=== PATIENT | female | born 1995 | race Caucasian/White ===

== ENCOUNTER 2018-02-15 17:46 | Emergency (ER) | payer SELFPAY ==
[2018-02-15 17:47] VITALS: BP 135/72; PULSE 92; RESP 16; TEMP 36.6; O2SAT 98; BMI 38.5
--- NOTE | 2018-02-15 18:08 | ED.VISSUMM ---
- ER Visit Summary Date of Service: 02/15/18 Chief Complaint: Left lower abdominal cramping History of Present Illness: The patient is a 22 F no senior past medical or surgical history. Ab0. Patient states last 2 months she has had intermittent left lower quadrant abdominal cramping. Associated nausea. No vomiting or diarrhea. Last menstrual period was 2 weeks ago normal. She denies any vaginal bleeding or discharge. She denies any diarrhea or constipation. She denies any dysuria. She denies any fever. She also states that she has had cramping in her left calf and behind her left knee and was concerned because her mom reportedly had prior blood clots. She has never had a DVT or PE. She has had no recent travel, surgery or mobilization. She is not on control pills. Physical Examination: Very well-appearing young female. Vital signs are stable and afebrile. H EENT exam unremarkable. Neck nontender. Lungs clear to auscultation bilaterally. Heart regular rhythm no murmur. Abdomen soft. Nondistended. Normal bowel sounds. No peritoneal signs. She is moving all 4 extremities are neurovascularly intact. Calves are nontender without edema or cords. Neurologically she is awake alert with no focal motor deficits. Test Results: Urinalysis shows unremarkable. Urine negative. Ultrasound of her left lower extremity showed no DVT or other acute abnormality. Emergency Department Course and Treatment: We my suspicion is low of the patient's discomfort in her leg. Her abdominal discomfort on exam is a very benign abdomen. Treatment Plan: Dull pain she can follow-up with her primary care physician and get an outpatient ultrasound as needed. This may possibly be ovarian cyst. Disposition: Discharge Impression: Abdominal pain left lower quadrant of uncertain etiology Left lower calf cramping (No DVT) This note was generated with [employer] dictation software. It may contain incorrect words, spelling, and punctuation that were not noted in review of the chart prior to signing ED Disposition - Plan for ED Patient: Chief Complaint: Abd Pain Referrals: Howard Gomez DO [Primary Care Provider] -
[2018-02-15 18:21] LABS: Bacteria 0 SEEN /hpf (None Seen); Mucous, Urine 0 SEEN /hpf (<or=2+); Red Blood Cells-Urine 0 SEEN /hpf (0-5); White Blood Cells 0 SEEN /hpf (0-5)
[2018-02-15 18:48] LABS: Color, Urine Yellow (Yellow); Glucose, Dipstick Normal (Normal); Ketone-Dipstick Negative (Negative); Leukocyte Esterase-Dipstick Negative /ul (Negative); Nitrite-Dipstick Negative (Negative); Occult Blood-Urine Negative /ul (Negative); Protein-Dipstick 15 mg/dl (Negative); Urine Bilirubin Dipstick Negative (Negative); Urine Clarity Sl. Cloudy (Clear); Urine Urobilinogen Normal (Normal)
--- NOTE | 2018-02-15 19:03 | US_ITS ---
STUDY: VENOUS DOPPLER ULTRASOUND - LEFT LOWER EXTREMITY REASON FOR EXAM: Female, 22 years old. Posterior left-sided calf pain. TECHNIQUE: Ultrasound evaluation of the deep vein system to include william-scale imaging and compression was performed. William-scale imaging and Doppler sonographic evaluation, including duplex spectral analysis and qualitative color flow sonography, was performed. COMPARISON: None. FINDINGS: Common Femoral Vein: Normal compression, spontaneity and augmentation. Normal color Doppler. Common Femoral Vein/Greater Saphenous Junction: Normal compression. Femoral Proximal: Normal compression. Femoral Middle: Normal compression, spontaneity and augmentation. Normal color Doppler. Femoral Distal: Normal compression. Popliteal Vein: Normal compression, spontaneity and augmentation. Normal color Doppler. Posterior Tibial Vein: Normal compression. Peroneal Vein: Normal compression. There is no demonstrated deep venous thrombosis. US/Venous Duplex Imag/Limited/Uni IMPRESSION: No sonographic evidence of deep venous thrombosis of the left common femoral, superficial femoral or popliteal veins. Electronically Signed: Gracie Pretty MD at 19:54 EDT , Service support ,
[2018-02-15 19:11] LABS: Internal QC Validated? YES +Cl - CLEAR BKGD; Pregnancy, Urine Negative Negative
[2018-02-15 19:17] LABS: Squamous Epithelial Cells - UA 5-10 SEEN /hpf (5-10)
--- NOTE | 2018-02-15 19:33 | ED.DEP ---
ED Disposition - Plan for ED Patient: Disposition: Home or Assisted Living Chief Complaint: Abd Pain Instructions: ED Abdominal Pain Unkn Cause Referrals: Howard Gomez DO [Primary Care Provider] - 1 Week Additional Instructions: Call follow-up with your doctor you may need outpatient ultrasound to be evaluated for a possible left ovarian cyst. All your tests tonight were negative. Urine was not infected. You are not . The ultrasound of your leg was negative.
[2018-02-15 19:38] VITALS: BP 122/68; PULSE 87; RESP 18; O2SAT 99
== END 2018-02-15 19:38 | disposition home or self-care (01) ==
PROVIDERS: Emergency Provider Emergency Medicine; Family Provider Preventive Medicine Occupational Medicine; PCP Preventive Medicine Occupational Medicine
DX: R10.32 Left lower quadrant pain (principal); M79.662 Pain in left lower leg
CPT/HCPCS: 81001; 81025; 93971; 99282

== ENCOUNTER → 2019-08-02 15:05 | Outpatient (CLI) | payer MEDICAID, SELFPAY ==
[2019-08-02 14:43] VITALS: BMI 38.5
[2019-08-02 15:21] LABS: Absolute Lymphocyte Count 1.92 X10^3/uL (0.83-4.51); Absolute Neutrophil Count 4.4 X10^3/uL (2.0-7.7); Basophil# 0.02 X10^3/uL; Basophil% 0.3 % (0-1); Eosinophil# 0.11 X10^3/uL; Eosinophils% 1.6 % (0-5); Hematocrit 34.8 % (37-47); Hemoglobin 11.9 g/dL (12.0-15.0); Lymphocyte # 1.92 X10^3/ul (4.0); Lymphocyte % 27.4 % (19-41); Mean Corp Hgb Conc 34.2 g/dL (32-36); Mean Corpuscular Hgb 28.1 pg (27.0-32.0); Mean Corpuscular Volume 82.3 fL (81-99); Mean Platelet Vol. 9.9 fl (6.2-12.0); Monocyte# 0.55 X10^3/uL; Monocyte% 7.9 % (0-10); NRBC Flagged by Analyzer 0 % (0-5); Neutrophil # 4.39 X10^3/uL (2.7-7.7); Neutrophil % 62.7 % (47-70); Platelet Count 184 K/mm3 (150-450); RBC Distribution Width SD 35.4 fl (35.1-43.9); Red Blood Count 4.23 M/mm3 (4.2-5.4)
[2019-08-02 15:32] LABS: Glucose Challenge Gest 1H 50g 98 mg/dL (70-140)
[2019-08-02 16:37] LABS: HIV - WCH Non-Reactive (Nonreactive); Hepatitis B Surface Antigen Non-Reactive (Nonreactive); Hepatitis C Antibody Non-Reactive (Nonreactive); Rubella IgG 129.5 IU/mL
[2019-08-02 17:03] LABS: Amphetamine Urine VISTA NEGATIVE (<1000 ng/mL); Barbiturate Urine VISTA NEGATIVE (< 200 ng/mL); Benzodiazepine Urine VISTA NEGATIVE (< 200 ng/mL); Cocaine Urine VISTA NEGATIVE (< 300 ng/mL); Ecstacy Urine VISTA NEGATIVE (< 500 ng/mL); Methadone Urine VISTA NEGATIVE (< 300 ng/mL); PCP Urine VISTA NEGATIVE (< 25 ng/mL); THC Urine VISTA NEGATIVE (< 50 ng/mL); Vista UDS pH Range 7
[2019-08-02 18:19] LABS: Chlamydia Trachomatis by PCR Negative (Negative); Neisserai gonorrhoeae by PCR Negative (Negative); Probe Check PASS; Sample Adequacy Control PASS; Specimen Processing Control PASS
[2019-08-03 02:25] LABS: Rapid Plasmin Reagin (RPR) NONREACTIVE (NONREACTIVE)
[2019-08-04 14:51] LABS: HPV Reflexed? NOT INDICATED
== END ==
PROVIDERS: PCP Preventive Medicine Occupational Medicine; Referring Provider Obstetrics & Gynecology; Visit Provider Obstetrics & Gynecology
DX: O99.210 Obesity complicating pregnancy, unspecified trimester (principal); E66.9 Obesity, unspecified; Z12.4 Encounter for screening for malignant neoplasm of cervix; Z3A.00 Weeks of gestation of pregnancy not specified
CPT/HCPCS: 36415; 80307; 82950; 85025; 86592; 86703; 86762; 86803; 86850; 86900; 86901; 87086; 87340; 87491; 87591; 88175; G0145

== ENCOUNTER → 2019-09-01 11:46 | Outpatient (CLI) | payer MEDICAID, SELFPAY ==
[2019-09-01 11:41] VITALS: BMI 44.1
[2019-09-01 20:57] LABS: NATERA MAILED SPECIMEN
== END ==
PROVIDERS: PCP Preventive Medicine Occupational Medicine; Referring Provider Nurse Practitioner Women's Health; Visit Provider Nurse Practitioner Women's Health
DX: Z34.81 Encounter for supervision of other normal pregnancy, first trimester (principal); Z31.430 Encounter of female for testing for genetic disease carrier status for procreative management
CPT/HCPCS: 36415

== ENCOUNTER → 2019-11-24 14:37 | Outpatient (CLI) | payer MEDICAID, SELFPAY ==
[2019-11-24 14:10] VITALS: BMI 44.1
[2019-11-24 15:03] LABS: Absolute Neutrophil Count 6.8 X10^3/uL (2.0-7.7); Basophil# 0.02 X10^3/uL; Basophil% 0.2 % (0-1); Hematocrit 31.2 % (37-47); Hemoglobin 10.3 g/dL (12.0-15.0); Lymphocyte % 22.8 % (19-41); Mean Corpuscular Hgb 28.1 pg (27.0-32.0); Mean Platelet Vol. 10.7 fl (6.2-12.0); Monocyte# 0.55 X10^3/uL; Monocyte% 5.7 % (0-10); NRBC Flagged by Analyzer 0 % (0-5); Neutrophil # 6.75 X10^3/uL (2.7-7.7); Neutrophil % 69.9 % (47-70); Platelet Count 186 K/mm3 (150-450); RBC Distribution Width SD 39.7 fl (35.1-43.9); Red Blood Count 3.67 M/mm3 (4.2-5.4); White Blood Count 9.7 K/mm3 (4.4-11.0)
[2019-11-24 15:44] LABS: Glucose Challenge Gest 1H 50g 88 mg/dL (70-140)
== END ==
PROVIDERS: PCP Preventive Medicine Occupational Medicine; Referring Provider Obstetrics & Gynecology; Visit Provider Obstetrics & Gynecology
DX: O09.90 Supervision of high risk pregnancy, unspecified, unspecified trimester (principal); Z3A.00 Weeks of gestation of pregnancy not specified
CPT/HCPCS: 36415; 82950; 85025

== ENCOUNTER 2019-12-08 13:45 | Outpatient (CLI) | payer MEDICAID, SELFPAY ==
[2019-12-07 10:03] VITALS: BMI 44.1
[2019-12-08 13:55] VITALS: TEMP 36.2; O2SAT 98
[2019-12-08 14:02] VITALS: BP 119/70; PULSE 110
[2019-12-08 14:17] VITALS: BMI 48.6
[2019-12-08 14:28] LABS: Color, Urine Yellow (Yellow); Glucose, Dipstick Normal (Normal); Ketone-Dipstick 5 mg/dl (Negative); Leukocyte Esterase-Dipstick Negative /ul (Negative); Nitrite-Dipstick Negative (Negative); Occult Blood-Urine Negative /ul (Negative); Protein-Dipstick Negative (Negative); Urine Bilirubin Dipstick Negative (Negative); Urine Clarity Sl. Cloudy (Clear); Urine Urobilinogen Normal (Normal)
--- NOTE | 2019-12-12 03:26 | OB.TRI.PN_ITS ---
Progress Notes Date of Service: 12/08/19 Progress Note: seen secondary to dec fm. good fm upon presentation and reassuring fht. early GA. reassurance given dc home movement precautions Laboratory Studies: Laboratory Tests 12/08/19 Range/Units 14:00 Urine Color Yellow (Yellow) Urine Clarity Sl. Cloudy (Clear) Urine pH 7.0 (5.0 - 8.0) Ur Specific [place] 1.010 (1.002-1.030) Urine Protein Negative (Negative) mg/dl Urine Glucose (UA) Normal (Normal) mg/dl Urine Ketones 5 H (Negative) mg/dl Urine Occult Blood Negative (Negative) /ul Urine Nitrite Negative (Negative) Urine Bilirubin Negative (Negative) mg/dL Urine Urobilinogen Normal (Normal) mg/dl Ur Leukocyte Esterase Negative (Negative) /ul - Problem List (1) Abnormal ultrasound Status: Acute Comment: initial dilated loop of bowel, resolved by 11/19 but prominent gall bladder seen, recommend abdominal us after delivery, report sent to [facility] for approval of delivery at [facility], approved per [facility] (2) Supervision of high risk , antepartum Status: Acute Comment: PRR BASILIO: 02/25/20 sadia Philip BF: Art (3) Decreased movement Status: Acute
== END 2019-12-08 14:25 | disposition home or self-care (01) ==
LOC: WPOUT 13:49 → OBT 13:53
PROVIDERS: PCP Preventive Medicine Occupational Medicine; Referring Provider Obstetrics & Gynecology; Visit Provider Obstetrics & Gynecology
DX: O36.8190 Decreased fetal movements, unspecified trimester, not applicable or unspecified (principal); O09.90 Supervision of high risk pregnancy, unspecified, unspecified trimester; O28.3 Abnormal ultrasonic finding on antenatal screening of mother; Z3A.00 Weeks of gestation of pregnancy not specified
CPT/HCPCS: 59025; 59050; 81002; 99218; G0378

== ENCOUNTER → 2019-12-22 11:14 | Outpatient (CLI) | payer MEDICAID, SELFPAY ==
[2019-12-22 11:12] VITALS: BMI 48.6
[2019-12-22 11:50] LABS: Absolute Lymphocyte Count 1.91 X10^3/uL (0.83-4.51); Absolute Neutrophil Count 6.6 X10^3/uL (2.0-7.7); Basophil# 0.01 X10^3/uL; Basophil% 0.1 % (0-1); Eosinophil# 0.08 X10^3/uL; Eosinophils% 0.9 % (0-5); Hemoglobin 11.4 g/dL (12.0-15.0); Lymphocyte # 1.91 X10^3/ul (4.0); Mean Corp Hgb Conc 32.6 g/dL (32-36); Mean Corpuscular Hgb 27.7 pg (27.0-32.0); Mean Corpuscular Volume 85.2 fL (81-99); Mean Platelet Vol. 10.7 fl (6.2-12.0); Monocyte# 0.49 X10^3/uL; Monocyte% 5.4 % (0-10); NRBC Flagged by Analyzer 0 % (0-5); Neutrophil # 6.57 X10^3/uL (2.7-7.7); Neutrophil % 72.2 % (47-70); Platelet Count 193 K/mm3 (150-450); RBC Distribution Width CV 13.2 % (11.6-14.6); RBC Distribution Width SD 40.4 fl (35.1-43.9); Red Blood Count 4.11 M/mm3 (4.2-5.4); White Blood Count 9.1 K/mm3 (4.4-11.0)
== END ==
PROVIDERS: PCP Preventive Medicine Occupational Medicine; Referring Provider Obstetrics & Gynecology; Visit Provider Obstetrics & Gynecology
DX: O99.019 Anemia complicating pregnancy, unspecified trimester (principal); D64.9 Anemia, unspecified; Z3A.00 Weeks of gestation of pregnancy not specified
CPT/HCPCS: 36415; 85025

== ENCOUNTER → 2020-01-05 11:25 | Outpatient (CLI) | payer MEDICAID, SELFPAY ==
[2019-11-24 14:10] VITALS: BMI 44.1
[2019-12-22 11:12] VITALS: BMI 48.6
--- NOTE | 2020-01-05 11:25 | US_ITS ---
STUDY: SECOND AND THIRD TRIMESTER OBSTETRICAL ULTRASOUND - LIMITED REASON FOR EXAM: Female, 24 years old GROWTH LMP: 05/21/2019 PRIOR ULTRASOUND: None. TECHNIQUE: Transabdominal TECHNICAL QUALITY: Adequate. FINDINGS: There is a single intrauterine fetus. The fetus is in a cephalic presentation. There is demonstrated cardiac activity with a heart rate of 158 bpm. There is a normal amniotic fluid volume. The largest amniotic fluid pocket measures 5.91 cm. The amniotic fluid index (RAFAEL) is 3.79 cm. The placenta is fundal in location. There are Grade 0 placental changes. The cervix measures 3.7 cm cm in length and is closed. The adnexa are not visualized. BIOMETRY: BPD: 8.71 cm: 35 weeks, 2 days HC: 31.46 cm: 35 weeks, 3 days AC: 29.77 cm: 33 weeks, 6 days FL: 6.48 cm: 33 weeks, 4 days CI: 82% FL/BPD: 74% FL/AC: 22% HC/AC: 1.06 Age by LMP: 32 weeks, 5 days. BASILIO by LMP: 02/25/2020. age by current US: 34 weeks, 4 days. BASILIO by LMP: 02/12/2020. . Estimated weight: 2313 grams, +/- 338 grams, 79 percentile. US/OB Limited With Biometrics IMPRESSION: 1. Single living intrauterine fetus in cephalic presentation estimated gestational age of 34 weeks, 4 days. Estimated date of delivery by today''s study is 02/12/2020. 2. Estimated weight is 2313 g. 3. Grade 0 fundal placenta is not low lying. 4. Normal amniotic fluid volume with an index of 0.79 cm. 5. The cervix is closed. Cervical length is 3.7 cm. Electronically Signed: Noam Norris MD at 15:58 EDT , Service support ,
== END ==
PROVIDERS: PCP Preventive Medicine Occupational Medicine; Referring Provider Obstetrics & Gynecology; Visit Provider Obstetrics & Gynecology
DX: O99.213 Obesity complicating pregnancy, third trimester (principal); Z3A.34 34 weeks gestation of pregnancy
CPT/HCPCS: 76816

== ENCOUNTER → 2020-02-02 11:30 | Outpatient (CLI) | payer MEDICAID, SELFPAY ==
[2019-11-24 14:10] VITALS: BMI 44.1
[2020-01-26 13:32] VITALS: BMI 48.6
--- NOTE | 2020-02-02 11:32 | US_ITS ---
STUDY: SECOND AND THIRD TRIMESTER OBSTETRICAL ULTRASOUND REASON FOR EXAM: Female, 24 years old growth LMP: 05/21/2019. TECHNIQUE: Transabdominal and Transvaginal TECHNICAL QUALITY: Adequate. PRIOR ULTRASOUND: Comparison is made with prior study dated 01/05/2020. FINDINGS: There is a single intrauterine fetus. The fetus is in a cephalic presentation. There is demonstrated cardiac activity with a heart rate of 152 bpm. There is a normal amniotic fluid volume. The largest amniotic fluid pocket measures 4.8 cm. The amniotic fluid index (RAFAEL) is 12.8 cm. The placenta is fundal and posterior in location. There are Grade 1 placental changes. The cervix measures 3.8 cm in length. The adnexal regions are not visualized. BIOMETRY: BPD: 9.3 cm: 37 weeks, 4 days HC: 34.8 cm: 40 weeks, 3 days AC: 35.8 cm: 39 weeks, 4 days FL: 7.1 cm: 36 weeks, 2 days CI: 77% FL/BPD: 77% FL/HC: FL/AC: 19.8% HC/AC: 0.97 age by current US: 38 weeks, 3 days. BASILIO by current US: 02/13/2020. Estimated weight: 3562 grams, +/- 534 grams, 70.7 %. age by prior US: 38 weeks, 4 days. BASILIO by prior US: 02/12/2020. Age by LMP: 36 weeks, 5 days. BASILIO by LMP: 02/25/2020. US/OB Limited With Biometrics IMPRESSION: Single live uterine gestation with a mean gestational age of 38 weeks and 4 days. The measurements obtained today following within normal expected range. Electronically Signed: Kal Moctezuma, at 12:34 EDT , Service support ,
== END ==
PROVIDERS: PCP Preventive Medicine Occupational Medicine; Referring Provider Obstetrics & Gynecology; Visit Provider Obstetrics & Gynecology
DX: O09.93 Supervision of high risk pregnancy, unspecified, third trimester (principal); Z3A.38 38 weeks gestation of pregnancy
CPT/HCPCS: 76816; 87077; 87081; 87186; 93976

== ENCOUNTER → 2020-02-23 09:10 | Outpatient (CLI) | payer MEDICAID, SELFPAY ==
[2020-02-09 13:10] VITALS: BMI 51.7
== END ==
PROVIDERS: PCP Preventive Medicine Occupational Medicine; Referring Provider Obstetrics & Gynecology; Visit Provider Obstetrics & Gynecology
DX: Z20.828 Contact with and (suspected) exposure to other viral communicable diseases (principal)
CPT/HCPCS: 87635; C9803; U0003

== ENCOUNTER → 2020-03-01 11:04 | Outpatient (CLI) | payer MEDICAID, SELFPAY ==
[2020-02-23 13:41] VITALS: BMI 51.7
[2020-03-01 09:33] VITALS: BMI 52.5
--- NOTE | 2020-03-01 12:40 | US_ITS ---
STUDY: SECOND AND THIRD TRIMESTER OBSTETRICAL ULTRASOUND - LIMITED REASON FOR EXAM: Female, 24 years old. . Post dates. LMP: 05/21/19 PRIOR ULTRASOUND: None. TECHNIQUE: Transabdominal ultrasound evaluation was performed. FINDINGS: There is a single intrauterine fetus. The fetus is in a cephalic presentation. There is demonstrated cardiac activity with a heart rate of 141 bpm. There is a normal amniotic fluid volume. The largest amniotic fluid pocket measures 6.1 cm. The amniotic fluid index (RAFAEL) is 16.6 cm. The placenta is fundal. BIOMETRY: BPD: 9.82 cm: 40 weeks, 1 days HC: 36.46 cm: Out of range. AC: 38.1: Out of range. FL: 7.81: 39 weeks, 6 days Age by LMP: 40 weeks, 5 days. BASILIO by LMP: 02/25/20. age by current US: Out of range Estimated weight: 4391 grams, +/- 659 grams, 94.6 percentile. US/OB Limited With Biometrics IMPRESSION: Single live intrauterine gestation, as described above. Electronically Signed: Sorin Delgado, at 14:06 EDT Tel , Service support ,
== END ==
PROVIDERS: PCP Preventive Medicine Occupational Medicine; Referring Provider Obstetrics & Gynecology; Visit Provider Obstetrics & Gynecology
DX: O48.0 Post-term pregnancy (principal); Z3A.00 Weeks of gestation of pregnancy not specified
CPT/HCPCS: 36415; 76816; 80053; 82570; 84156; 85025

== ENCOUNTER → 2020-03-01 | Outpatient (CLI) | payer MEDICAID, SELFPAY ==
[2020-03-01 09:33] VITALS: BMI 52.5
[2020-03-01 10:31] LABS: Protein, Urine (Random) 58.4 mg/dL (<11.9); Protein:Creat Ratio 330 mg/g CRE (0-200)
[2020-03-01 11:15] LABS: Absolute Lymphocyte Count 1.67 X10^3/uL (0.83-4.51); Absolute Neutrophil Count 5.6 X10^3/uL (2.0-7.7); Basophil# 0.02 X10^3/uL; Basophil% 0.3 % (0-1); Eosinophil# 0.06 X10^3/uL; Eosinophils% 0.8 % (0-5); Hematocrit 34.9 % (37-47); Hemoglobin 11.4 g/dL (12.0-15.0); Lymphocyte # 1.67 X10^3/ul (4.0); Lymphocyte % 21.1 % (19-41); Mean Corp Hgb Conc 32.7 g/dL (32-36); Mean Corpuscular Hgb 27.9 pg (27.0-32.0); Mean Corpuscular Volume 85.5 fL (81-99); Mean Platelet Vol. 11.8 fl (6.2-12.0); Monocyte# 0.59 X10^3/uL; Monocyte% 7.5 % (0-10); NRBC Flagged by Analyzer 0 % (0-5); Neutrophil # 5.55 X10^3/uL (2.7-7.7); Platelet Count 151 K/mm3 (150-450); RBC Distribution Width CV 13.4 % (11.6-14.6); RBC Distribution Width SD 41.4 fl (35.1-43.9); Red Blood Count 4.08 M/mm3 (4.2-5.4); White Blood Count 7.9 K/mm3 (4.4-11.0)
[2020-03-01 11:47] LABS: ALB/GLOB Ratio 0.6 RATIO (0.9-2.4); AST(SGOT) 12 U/L (15-37); Alanine Aminotransfer ALT/SGPT 16 U/L (13-56); Albumin, Serum 2.5 g/dL (3.2-5.0); Alkaline Phosphatase 104 U/L (45-117); Anion Gap 7 (5-15); BUN 12 mg/dL (7-18); BUN/Creat Ratio 18.2 RATIO (10-20); Calcium,Total 8.7 mg/dL (8.5-10.1); Chloride 109 mmol/L (98-107); Creatinine, Serum 0.66 mg/dL (0.55-1.02); EST Glomerular Filtration Rate 119 mL/min (>60); Est Glom Filt Rate - Afr Amer 144 mL/min (>60); Globulin 4.5 g/dL (2.2-4.2); Glucose 106 mg/dL (74-106); Potassium 3.8 mmol/L (3.5-5.1); Sodium Level 138 mmol/L (136-145)
== END | disposition home or self-care (01) ==
LOC: LABSPEC 09:57
PROVIDERS: PCP Preventive Medicine Occupational Medicine; Referring Provider Obstetrics & Gynecology; Visit Provider Obstetrics & Gynecology
DX: O12.10 Gestational proteinuria, unspecified trimester (principal); Z3A.00 Weeks of gestation of pregnancy not specified
CPT/HCPCS: 36415; 80053; 82570; 84156; 85025

== ENCOUNTER 2020-03-02 18:30 | Inpatient (IN) | payer MEDICAID, SELFPAY ==
[2019-08-02 14:43] VITALS: BMI 38.5
[2020-03-01 09:33] VITALS: BMI 52.5
--- NOTE | 2020-03-02 17:58 | PCM.HPOB.BLA ---
- Problem List (1) Post-dates Status: Acute (2) 38 weeks gestation of Status: Acute Comment: COVID TESTING ORDERED 02/14/2020sc (3) Abnormal ultrasound Status: Acute Comment: initial dilated loop of bowel, resolved by 11/19 but prominent gall bladder seen, recommend abdominal us after delivery, report sent to [facility] for approval of delivery at [facility], approved per MFM (4) GBS (group B Streptococcus carrier), +RV culture, currently Status: Acute Comment: plan PCN in labor (5) Influenza vaccine administered Status: Acute Comment: 01/19/2020sc (6) Obesity affecting Status: Acute Qualifiers: Comment: BMI 43- Glucola nl at [facility], encouraged healthy weight gain. weekly nsts and q 4 wk growth US after 32 weeks. NL growth 70% 02/01 (7) Status: Acute Qualifiers: Comment: Carrier screening negative. Low risk genetic and declined NTD, anatomy us reveiwed. 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 Adore Steel MD) Smoking Status: Never smoker alcohol intake: never substance use type: does not use caffeine: No what type of physical activity do you participate in: none seatbelt use: always do you feel safe at home: Yes additional social history: [employer] at [employer] Patient works at [employer] Pregancy History 1 Elective abortions Hx Para Spontaneous abortions Hx # Term Pregnancies Ectopic pregnancies Hx # Pregnancies Multiple births # of living children HPI est ob: Details: ROSALIND JACKSON is a 24 year old who presents with premature rupture of membranes cervix and half a centimeter dilated with no regular contractions. OB Visit BASILIO Calculator Estimated Delivery Date Method Current WG Current Estimate 02/25/20 LMP (Certain) 40w 5d Other Estimates 02/26/20 Ultrasound #1 40w 4d Expected Delivery Route/Plan Labor Preferences- CB/BF classes: desires labor support person: Art labor intervention preferences: ok with standard interventions pain management options preferred: epidural cut cord/dad catch: cord, maybe delivery : [] PP control planned: [] discussed possible routes of delivery and associated risks: discussed possible delivery modalities and possible indications for each including R/B/A of , VAVD, and CS. questions answered. special requests: none. Specific Issue/Plans flu vaccine: declined tdap vaccine: 11/23 rhogam: na LARC form signed: yes Problem list reviewed and updated with the most current plan of care details and appropriate orders placed. Relevant counseling for the gestational age provided. Continue routine care and follow up unless otherwise noted in visit notes/problem list details Initial Weight: 251 lb Date EGA Weight BP Urine Prot Glucose FHR FuHt Pres Dilation Effaced St Visit Note 09/01/19 14w 5d 257 lb (+6 lb) 124/68 Negative Negative 164 MH-NO VB, LOF. Nausea has resolved. NIPT and carrier today. Reviewed PNL 09/20/19 17w 3d 262 lb (+11 lb) 116/72 Negative Negative 142 NO VB, LOF. work in for low pelvic cramping. Reassured. Anatomy US 10/1110/24/19 22w 2d 273 lb (+22 lb) 112/66 Trace Negative 145 23 SM- no vb lof good fm no regular cts 11/24/19 26w 5d 283 lb 6 oz (+32 lb 6 oz) 124/60 Negative Negative 145 27 SM- no vb lof good fm no regular ctx cbc gct tdap today. discussed fu mfm ultrasound 12/07/19 28w 4d 283 lb 6 oz (+32 lb 6 oz) 124/68 Negative Negative 155 29 MH-No vb, lof. Good FM. Growth US 32 wk ordered 12/22/19 30w 5d 285 lb 6 oz (+34 lb 6 oz) 128/70 Negative Negative 140 31 SM- no vb lof good fm no regular ctx cbc today 01/05/20 32w 5d 291 lb 6 oz (+40 lb 6 oz) 130/64 SM- no vb lof good fm no regular ctx 01/19/20 34w 5d 290 lb (+39 lb) 130/82 Negative Negative 140 35 Sm- no vb lof good fm no regular ctx 02/02/20 36w 5d 295 lb (+44 lb) 130/78 Negative Negative 140 36 GP - no LOF, VB, DFM, ctx. Denies complaints. 02/09/20 37w 5d 301 lb 6 oz (+50 lb 6 oz) 136/74 Negative Negative 140 37 Cephalic 0 GP - no LOF, VB, DFM, regular ctx. Labor precautions reviewed. 02/16/20 38w 5d 303 lb 4 oz (+52 lb 4 oz) 130/86 Negative Negative 140 39 Cephalic 0 Sm- no vb lof good fm no regular ctx 02/23/20 39w 5d 306 lb (+55 lb) 130/80 130 40 Cephalic Sm- no vb lof good fm no regular ctx 03/01/20 40w 5d 306 lb (+55 lb) 135/84 1+ Negative 130 41 Cephalic 0 Sm- no vb lof good fm nro egualr ctx ordered growth us. unable to see routine NOB results in previous records, will obtain Sm- no vb lof good fm nro egualr ctx scheduled IOL wednesday Diagnostics Diagnostics Details: HIV: Urine Culture: Sequential Screen: NIPT Screen: ROS Const Reports system reviewed and no additional complaints, except as docu Card Reports system reviewed and no additional complaints, except as docu Resp Reports system reviewed and no additional complaints, except as docu GI Reports system reviewed and no additional complaints, except as docu, Reports nausea Reports system reviewed and no additional complaints, except as docu Musc Reports system reviewed and no additional complaints, except as docu Exam Const General: cooperative, healthy appearing, comfortable, anxious [facility] Head: normal to inspection Nose: external nose normal Face and sinus: normal facial exam Neck Neck: normal visual inspection, full ROM, no lymphadenopathy Thyroid: thyroid normal Chest Chest palpation & inspection: normal inspection of the chest Resp Effort & Inspection: normal respiratory effort GI Inspection: normal to inspection Palpation: soft, other (gravid uterus) Other: infant vertex and appropriate size for gestational age Other: Cervical Exam: Extrem General: pedal edema Results POC Urinalysis 2 Dip (Clinic) Office Urine Glucose Negative Last Edit by Toña Stack on 03/01/20 09:39 Office Urine Protein 1+ Last Edit by Toña Stack on 03/01/20 09:39 Assessment & Plan Problems 1. Obesity affecting O99.210 BMI 43- Glucola nl at [facility], encouraged healthy weight gain. weekly nsts and q 4 wk growth US after 32 weeks. NL growth 70% 02/01 2. Supervision of high risk , antepartum O09.90 PRR BASILIO: 02/25/20 sadia Philip BF: Art 3. Z34.90 Carrier screening negative. Low risk genetic and declined NTD, anatomy us reveiwed. 4. Abnormal ultrasound O28.3 initial dilated loop of bowel, resolved by 11/19 but prominent gall bladder seen, recommend abdominal us after delivery, report sent to [facility] for approval of delivery at [facility], approved per MFM 5. Influenza vaccine administered Z23 01/19/2020sc 6. GBS (group B Streptococcus carrier), +RV culture, currently O99.820 plan PCN in labor 7. 38 weeks gestation of Z3A.38 COVID TESTING ORDERED 02/14/2020sc Plan Patient presents IOL due to PROM, plan management for with Pitocin Pain management: plans epidural. GBS positive- PCN. Management of any complications: morbid obesity I have reviewed the [facility] and made any clinically relevant updates. Orders Orders: POC Urinalysis 2 Dip (Clinic) Today Protein+Creatinine Ratio,Urine Today O12.10 Coding Level of Care Code Off vis,est,level 4 Diagnoses Obesity affecting O99.210 Supervision of high risk , antepartum O09.90 Z34.90 Abnormal ultrasound O28.3 Influenza vaccine administered Z23 GBS (group B Streptococcus carrier), +RV culture, currently O99.820 38 weeks gestation of Z3A.38
[2020-03-02 19:02] VITALS: BMI 52.6
[2020-03-02 19:13] VITALS: BP 129/85; PULSE 93
[2020-03-02] MEDS: Lactated Ringers 1,000 ML 200 ML IV (19:35)
[2020-03-02 19:54] LABS: Absolute Lymphocyte Count 1.83 X10^3/uL (0.83-4.51); Absolute Neutrophil Count 6.2 X10^3/uL (2.0-7.7); Basophil# 0.02 X10^3/uL; Basophil% 0.2 % (0-1); Eosinophil# 0.06 X10^3/uL; Eosinophils% 0.7 % (0-5); Hematocrit 33.7 % (37-47); Hemoglobin 11.2 g/dL (12.0-15.0); Lymphocyte # 1.83 X10^3/ul (4.0); Lymphocyte % 21.1 % (19-41); Mean Corp Hgb Conc 33.2 g/dL (32-36); Mean Corpuscular Hgb 28.4 pg (27.0-32.0); Mean Corpuscular Volume 85.3 fL (81-99); Mean Platelet Vol. 11.9 fl (6.2-12.0); Monocyte# 0.55 X10^3/uL; Monocyte% 6.4 % (0-10); NRBC Flagged by Analyzer 0 % (0-5); Neutrophil # 6.17 X10^3/uL (2.7-7.7); Neutrophil % 71.3 % (47-70); Platelet Count 147 K/mm3 (150-450); RBC Distribution Width CV 13.2 % (11.6-14.6); RBC Distribution Width SD 40.8 fl (35.1-43.9); Red Blood Count 3.95 M/mm3 (4.2-5.4); White Blood Count 8.7 K/mm3 (4.4-11.0)
[2020-03-02 20:21] VITALS: BP 125/83; PULSE 99
[2020-03-02 21:33] VITALS: BP 132/73; PULSE 80; TEMP 36.5
[2020-03-02] MEDS: Oxytocin 30 units/NS 500 ml 30 UNITS/500 ML IV.SOLN IV (22:04)
[2020-03-02 22:57] VITALS: TEMP 36.8
[2020-03-02 22:58] VITALS: BP 114/65; PULSE 83
[2020-03-02 23:45] VITALS: BP 117/73; PULSE 90; TEMP 36.4; O2SAT 97
[2020-03-03] VITALS (75 sets, daily range): BP systolic 98–156; BP diastolic 56–105; PULSE 65–108; TEMP 35.9–37.1; O2SAT 80–100
[2020-03-03] MEDS: fentaNYL 100 MCG/2 ML Ampul IV (01:39)
[2020-03-03] MEDS: Lactated Ringers 500 ML 999 ML IV (02:35)
[2020-03-03] MEDS: fentaNYL-bupivacaine (epidural) 100 ML BAG EPIDURAL ×4 (03:52→20:46)
[2020-03-03] MEDS: Lactated Ringers 1,000 ML 200 ML IV ×4 (04:41→19:50)
[2020-03-03] MEDS: 0.9% Saline Lock 10 ML Syringe IV ×3 (05:02→20:45)
--- NOTE | 2020-03-03 08:11 | PCM.PN.BLA ---
Progress Note Patient doing well getting some rest 80/-1 current tracing: FHT: 130 Moderate variability reactive no decelerations category I tracing [place]: Every 2-3 adequate contractions reviewed tracing abnormalities since last note: Isolated variables resolved with position changing A/P: PROM continue expectant management with Pitocin per protocol. Await transition active labor. Thick meconium but reassuring heart rate tracing. STROKE Vital Signs/Narrative: Vital Signs Temp Pulse BP Pulse Ox 03/03/20 07:42 82 99 03/03/20 07:41 97.1 F L 71 122/76 H 03/03/20 06:45 72 116/72 03/03/20 06:44 98.0 F 99 03/03/20 04:51 98.3 F 72 98/67 99 03/03/20 04:14 84 107/67 97
--- NOTE | 2020-03-03 14:32 | PCM.PN.BLA ---
Progress Note /-1 pit at 12 mU now, continue per protocol. position changes discussed. exp management cat I tracing STROKE Vital Signs/Narrative: Vital Signs Temp Pulse BP Pulse Ox 03/03/20 13:37 97.2 F L 73 120/56 L 80 03/03/20 12:13 97.9 F 73 104/58 L 98 03/03/20 10:36 98.6 F 74 122/82 H
[2020-03-03] MEDS: Ondansetron 4 MG/2 ML Vial IV (20:46)
[2020-03-04] VITALS (119 sets, daily range): BP systolic 113–193; BP diastolic 55–104; PULSE 73–126; RESP 17–20; TEMP 36.1–37.1; O2SAT 78–100
[2020-03-04] MEDS: fentaNYL-bupivacaine (epidural) 100 ML BAG EPIDURAL ×2 (01:06→05:30)
[2020-03-04] MEDS: Ondansetron 4 MG/2 ML Vial IV (01:06)
[2020-03-04] MEDS: 0.9% Saline Lock 10 ML Syringe IV ×4 (01:06→10:10)
[2020-03-04] MEDS: Lactated Ringers 1,000 ML 200 ML IV (01:50)
[2020-03-04] MEDS: Labetalol (Prefilled) 20 MG/4 ML IV ×2 (03:00→03:52)
[2020-03-04 03:54] LABS: Absolute Lymphocyte Count 1.29 X10^3/uL (0.83-4.51); Absolute Neutrophil Count 11.7 X10^3/uL (2.0-7.7); Basophil# 0.03 X10^3/uL; Basophil% 0.2 % (0-1); Eosinophil# 0.01 X10^3/uL; Eosinophils% 0.1 % (0-5); Hematocrit 35.5 % (37-47); Hemoglobin 11.6 g/dL (12.0-15.0); Lymphocyte # 1.29 X10^3/ul (4.0); Lymphocyte % 9.2 % (19-41); Mean Corp Hgb Conc 32.7 g/dL (32-36); Mean Corpuscular Hgb 28.2 pg (27.0-32.0); Mean Corpuscular Volume 86.2 fL (81-99); Mean Platelet Vol. 12.6 fl (6.2-12.0); Monocyte# 0.84 X10^3/uL; NRBC Flagged by Analyzer 0 % (0-5); Neutrophil % 83.9 % (47-70); Platelet Count 126 K/mm3 (150-450); RBC Distribution Width CV 13.4 % (11.6-14.6); RBC Distribution Width SD 41.4 fl (35.1-43.9); Red Blood Count 4.12 M/mm3 (4.2-5.4)
[2020-03-04] MEDS: Magnesium Sulfate 4gm/100mL 2 GM/50 ML IV.SOLN. IV (03:59)
[2020-03-04 04:22] LABS: ALB/GLOB Ratio 0.5 RATIO (0.9-2.4); AST(SGOT) 14 U/L (15-37); Alanine Aminotransfer ALT/SGPT 11 U/L (13-56); Albumin, Serum 2.2 g/dL (3.2-5.0); Alkaline Phosphatase 92 U/L (45-117); Anion Gap 9 (5-15); BUN 11 mg/dL (7-18); BUN/Creat Ratio 12.3 RATIO (10-20); Calcium,Total 8.6 mg/dL (8.5-10.1); Chloride 104 mmol/L (98-107); Creatinine, Serum 0.89 mg/dL (0.55-1.02); EST Glomerular Filtration Rate 84 mL/min (>60); Est Glom Filt Rate - Afr Amer 102 mL/min (>60); Estimated Creatinine Clearance 85.62 ml/min; Globulin 4.4 g/dL (2.2-4.2); Glucose 89 mg/dL (74-106); Protein, Total 6.6 g/dL (6.4-8.2); Sodium Level 135 mmol/L (136-145)
[2020-03-04] MEDS: Magnesium Sulfate 4gm/100mL 4 GM/100 ML IV.SOLN. IV (04:24)
[2020-03-04] MEDS: Magnesium Sulfate 20 GM/500 ML BAG IV ×2 (04:54→14:52)
[2020-03-04] MEDS: Oxytocin 30 units/NS 500 ml 30 UNITS/500 ML IV.SOLN 334 UNITS IV (06:48)
[2020-03-04] MEDS: Carboprost Tromethamine 250 MCG/ML Ampul IM (06:50)
[2020-03-04] MEDS: miSOPROStol 200 MCG Tablet 1000 MCG RECTAL (06:53)
--- NOTE | 2020-03-04 07:17 | OP.PCM_ITS ---
Problem List (1) Post-dates Status: Acute (2) 38 weeks gestation of Status: Acute Comment: COVID TESTING ORDERED 02/14/2020sc (3) Abnormal ultrasound Status: Acute Comment: initial dilated loop of bowel, resolved by 11/19 but prominent gall bladder seen, recommend abdominal us after delivery, report sent to [facility] for approval of delivery at [facility], approved per MFM (4) GBS (group B Streptococcus carrier), +RV culture, currently Status: Acute Comment: plan PCN in labor (5) Influenza vaccine administered Status: Acute Comment: 01/19/2020sc (6) Obesity affecting Status: Acute Qualifiers: Comment: BMI 43- Glucola nl at [facility], encouraged healthy weight gain. weekly nsts and q 4 wk growth US after 32 weeks. NL growth 70% 02/01 (7) Status: Acute Qualifiers: Comment: Carrier screening negative. Low risk genetic and declined NTD, anatomy us reveiwed. (8) Supervision of high risk , antepartum Status: Acute Comment: PRR BASILIO: 02/25/20 sadia Philip BF: Art Vaginal Delivery Maternal Presentation: Spontaneous Rupture of Membranes PROM 40w6d Method of Induction: Pitocin Amniotic Fluid Description: Thick meconium Date of Procedure: 03/04/20 Pre-Operative Diagnosis: prom Post-Operative Diagnosis: same Surgery/ Procedure Performed: Spontaneous Vaginal Delivery Type of Anesthesia: Epidural Description of Procedure: Patient began pushing and delivered the head in the PRISCILLA presentation. The head was delivered atraumatically. The anterior and posterior shoulders delivered without complication followed by the rest of the and the infant was placed on the maternal abdomen. Delayed cord clamping was employed for approximately 60 seconds. Cord was clamped and cut and gentle traction was applied to the cord and the placenta delivered spontaneously immediately following it was noted to be intact with three-vessel cord. The perineum and vagina were inspected and noted to have a second degree laceration repaired in the usual fashion with 3-0 vicryl rapide. Mild uterine atony treated with hemabate, pitocin, massage and cytotec. EBL was 800 cc. Patient and tolerated delivery well. Placental Delivery Description: Spontaneous Cord Vessel Description: 3 Vessels Cord Entanglement: None Estimated Blood Loss: 800 A gender: Male Episiotomy Description: None Laceration: Perineal Extension/lac, 2nd degree Medications given after delivery: IV Pitocin Complications: None Multi Select Codes - Urinary/Genital Urinary/Genital CPT Codes: 31395 Vaginal Delivery+ Care([facility])
[2020-03-04] MEDS: Acetaminophen 500 MG Tablet 1000 MG PO ×2 (10:09→19:17)
[2020-03-04] MEDS: Naproxen 250 MG Tablet 500 MG PO (13:20)
[2020-03-04] MEDS: Senna/Docusate Sodium 1 Tablet PO (13:20)
[2020-03-05] VITALS (20 sets, daily range): BP systolic 103–133; BP diastolic 48–62; PULSE 75–94; RESP 16–19; TEMP 36.1–36.6; O2SAT 94–100
[2020-03-05] MEDS: Magnesium Sulfate 20 GM/500 ML BAG IV (00:06)
[2020-03-05] MEDS: Naproxen 250 MG Tablet 500 MG PO ×2 (00:16→09:29)
[2020-03-05] MEDS: Acetaminophen 500 MG Tablet 1000 MG PO (04:12)
[2020-03-05] MEDS: 0.9% Saline Lock 10 ML Syringe IV (06:49)
--- NOTE | 2020-03-05 08:48 | PCM.PN.OB ---
Patient Problems: Active and Suspected Problems (Last Reviewed 03/01/20 @ 09:33 by Toña Stack) Post-dates (Acute) 38 weeks gestation of (Acute) COVID TESTING ORDERED 02/14/2020sc GBS (group B Streptococcus carrier), +RV culture, currently (Acute) plan PCN in labor Influenza vaccine administered (Acute) 01/19/2020sc Abnormal ultrasound (Acute) initial dilated loop of bowel, resolved by 11/19 but prominent gall bladder seen, recommend abdominal us after delivery, report [facility] to [facility] for approval of delivery at [facility], approved per [facility] (Acute) Carrier screening negative. Low risk genetic and declined NTD, anatomy us reveiwed. Supervision of high risk , antepartum (Acute) PRR BASILIO: 02/25/20 sadia Philip BF: Art Obesity affecting (Acute) BMI 43- Glucola nl at [facility], encouraged healthy weight gain. weekly nsts and q 4 wk growth US after 32 weeks. NL growth 70% 02/01 Subjective: Patient doing well without complaints. Tolerating PO. Ambulating and voiding without difficulty. feeding well. Denies chest pain, shortness of breath, calf pain/swelling, fevers, chills, lightheadedness. - Physical Exam Vitals/I&O's: Vital Signs Temp Pulse Resp BP Pulse Ox 97.4 F L 80 16 120/58 L 96 03/05/20 07:40 03/05/20 07:40 03/05/20 07:40 03/05/20 07:40 03/05/20 07:40 Oxygen Delivery Method Room Air Weight: 306 lb 7.08 oz Body Mass Index (BMI) 52.6 Intake and Output for Last 24 Hours 03/03/20 03/04/20 03/05/20 23:59 23:59 23:59 Intake Total 5738.23 / 5738.23 4921.56 / 4921.56 750.01 / 750.01 Output Total 1300 / 1300 2500 / 2500 1350 / 1350 Balance 4438.23 / 4438.23 2421.56 / 2421.56 -599.99 / -599.99 Current Medications Acetaminophen (Acetaminophen 500 Mg Tablet) 1,000 mg PO Q8H PRN PRN PRN Reason: Pain Score 1-3 Last Admin: 03/05/20 04:12 Dose: 1,000 mg Documented by: Bisacodyl (Bisacodyl 10 Mg Suppository) 10 mg RECTAL UD PRN PRN Reason: If no BM Dibucaine (Dibucaine 30 Gm Tube) 1 applic TOPICAL TID PRN PRN; Protocol PRN Reason: Discomfort Hydrocortisone (Hydrocortisone 2.5% Crm) 1 applic TOPICAL TID PRN PRN; Protocol PRN Reason: Discomfort Naproxen (Naproxen 250 Mg Tablet) 500 mg PO Q8H PRN PRN PRN Reason: Pain Score 1-3 Last Admin: 03/05/20 00:16 Dose: 500 mg Documented by: Ondansetron HCl (Ondansetron 4 Mg/2 Ml Vial) 4 mg IV Q4H PRN PRN PRN Reason: Nausea Oxycodone HCl (Oxycodone 5 Mg Tablet) 5 - 10 mg PO Q4H PRN PRN PRN Reason: Pain Score 4-10 Senna/Docusate Sodium (Senna/Docusate Sodium 1 Tablet) 1 - 2 tablet PO DAILY PRN PRN PRN Reason: Constipation Last Admin: 03/04/20 13:20 Dose: 2 tablet Documented by: Simethicone (Simethicone 80 Mg Tablet) 80 mg PO PCHS PRN PRN Reason: Indigestion/Stomach pain Sodium Chloride (0.9% Saline Lock 10 Ml Syringe) 5 - 15 ml IV UD PRN PRN Reason: SALINE FLUSH Last Admin: 03/05/20 06:49 Dose: 10 ml Documented by: Medical Necessity - Tobacco Use Smoking Status: Former smoker Assessment/Plan All Active Problems (Last Reviewed 03/01/20 @ 09:33 by Toña Stack) Post-dates (Acute) 38 weeks gestation of (Acute) GBS (group B Streptococcus carrier), +RV culture, currently (Acute) Influenza vaccine administered (Acute) Abnormal ultrasound (Acute) (Acute) Supervision of high risk , antepartum (Acute) Obesity affecting (Acute) Anemia affecting (Resolved) Decreased movement (Resolved) s/p PPD # 1 1. routine post delivery care 2. breast feeding- support given 3. rh positive 4. rubella immune magnesium turned off and follow bps this am
--- NOTE | 2020-03-05 08:49 | DCINST_ITS ---
Discharge Diet: No Restrictions Discharge Activity: Return to Normal Activity, May not drive while taking narcotic pain medications., May Shower May resume sexual activity in: 4-6 weeks Call your doctor if your incision/area has: Continuous Slow Oozing, Sudden Increased Bleeding, Increased Pain/ Swelling, Increased Redness, Foul Smelling Discharge Additional Instructions: If you experience any of the following, contact your healthcare provider. * Bleeding that soaks a pad every hour for 2 hours * Fever 100.4 or higher * Unrelieved incision or abdominal pain * Swelling, redness, discharge or bleeding from your incision or episiotomy site * Your incision begins to separate * Problems urinating (including inability to urinate or burning while urinating). * Visual changes * Severe headache * Flu-like symptoms * Pain or redness in one of both of your breasts * Pain, warmth, tenderness or swelling in your legs, especially the calf area * Frequent nausea and vomiting * Symptoms of depression or anxiety If you experience any of the following, call 911 or go to the nearest Emergency Room. * Chest pain * Problems breathing * Seizure activity * Partial or complete paralysis of a body part, slurred speech, weakness or drooping of the face, or a sudden inability to walk or hold your balance Allergies/Adverse Reactions: Allergies No Known Allergies Allergy (Verified 03/02/20 19:04) Medications to take at Discharge Pnv No.103/Folic/Om3s/Fish Oil [ Gummies] 2 ea PO DAILY 12/08/19 Please Follow Up With: Adore Steel MD - [phone] When: Call to make an appointment with your doctor in 6 weeks. If you had elevated Blood pressure or 4th degree laceration you will need to be seen in 2 weeks. Primary Care Physician: Howard Gomez DO [Primary Care Provider] - Test Results: Test results from this visit will be discussed in further detail at your follow- up appointment, if applicable.
--- NOTE | 2020-03-05 08:49 | PCM.DCVAG ---
Discharge Diet: No Restrictions Discharge Activity: Return to Normal Activity, May not drive while taking narcotic pain medications., May Shower May resume sexual activity in: 4-6 weeks Call your doctor if your incision/area has: Continuous Slow Oozing, Sudden Increased Bleeding, Increased Pain/ Swelling, Increased Redness, Foul Smelling Discharge Additional Instructions: If you experience any of the following, contact your healthcare provider. Bleeding that soaks a pad every hour for 2 hours Fever 100.4 or higher Unrelieved incision or abdominal pain Swelling, redness, discharge or bleeding from your incision or episiotomy site Your incision begins to separate Problems urinating (including inability to urinate or burning while urinating). Visual changes Severe headache Flu-like symptoms Pain or redness in one of both of your breasts Pain, warmth, tenderness or swelling in your legs, especially the calf area Frequent nausea and vomiting Symptoms of depression or anxiety If you experience any of the following, call 911 or go to the nearest Emergency Room. Chest pain Problems breathing Seizure activity Partial or complete paralysis of a body part, slurred speech, weakness or drooping of the face, or a sudden inability to walk or hold your balance Allergies/Adverse Reactions: Allergies No Known Allergies Allergy (Verified 03/02/20 19:04) Medications to take at Discharge Pnv No.103/Folic/Om3s/Fish Oil [ Gummies] 2 ea PO DAILY 12/08/19 Please Follow Up With: Adore Steel MD - [phone] When: Call to make an appointment with your doctor in 6 weeks. If you had elevated Blood pressure or 4th degree laceration you will need to be seen in 2 weeks. Primary Care Physician: Howard Gomez DO [Primary Care Provider] - Test Results: Test results from this visit will be discussed in further detail at your follow-up appointment, if applicable.
== END 2020-03-05 16:30 | disposition home or self-care (01) | DRG 560 ==
PROVIDERS: Admitting Provider Obstetrics & Gynecology; PCP Preventive Medicine Occupational Medicine; Referring Provider Obstetrics & Gynecology; Visit Provider Obstetrics & Gynecology
DX: O42.92 Full-term premature rupture of membranes, unspecified as to length of time between rupture and onset of labor (principal); O48.0 Post-term pregnancy; O99.824 Streptococcus B carrier state complicating childbirth; O77.0 Labor and delivery complicated by meconium in amniotic fluid; O62.2 Other uterine inertia; O70.1 Second degree perineal laceration during delivery; O99.02 Anemia complicating childbirth; D64.9 Anemia, unspecified; O12.10 Gestational proteinuria, unspecified trimester; O99.214 Obesity complicating childbirth; E66.01 Morbid (severe) obesity due to excess calories; O28.3 Abnormal ultrasonic finding on antenatal screening of mother; Z3A.40 40 weeks gestation of pregnancy; Z37.0 Single live birth
CPT/HCPCS: 36415; 59025; 59050; 76816; 80053; 82570; 84156; 85025; 86850; 86900; 86901; 99218; J7120; A4216; G0378; J2405

== ENCOUNTER → 2022-07-15 | Outpatient (CLI) | payer MEDICAID, SELFPAY ==
[2022-07-15 16:34] LABS: hCG Titer Quant., Serum 2753 mIU/mL (1-3)
== END | disposition home or self-care (01) ==
PROVIDERS: PCP Preventive Medicine Occupational Medicine; Referring Provider Obstetrics & Gynecology; Visit Provider Obstetrics & Gynecology
DX: N92.0 Excessive and frequent menstruation with regular cycle (principal)
CPT/HCPCS: 36415; 84702

== ENCOUNTER → 2022-07-17 | Outpatient (CLI) | payer MEDICAID, SELFPAY ==
[2022-07-17 17:15] LABS: hCG Titer Quant., Serum 576 mIU/mL (1-3)
== END | disposition home or self-care (01) ==
PROVIDERS: PCP Preventive Medicine Occupational Medicine; Visit Provider Obstetrics & Gynecology
DX: N92.0 Excessive and frequent menstruation with regular cycle (principal)
CPT/HCPCS: 36415; 84702

== ENCOUNTER → 2022-07-24 | Outpatient (CLI) | payer MEDICAID, SELFPAY ==
[2022-07-24 14:00] LABS: hCG Titer Quant., Serum 20 mIU/mL (1-3)
== END | disposition home or self-care (01) ==
PROVIDERS: PCP Preventive Medicine Occupational Medicine; Referring Provider Nurse Practitioner Women's Health; Visit Provider Nurse Practitioner Women's Health
DX: O02.1 Missed abortion (principal)
CPT/HCPCS: 36415; 84702

== ENCOUNTER → 2023-05-06 | Outpatient (CLI) | payer MEDICAID, SELFPAY ==
[2023-05-07 21:07] LABS: Chlamydia By Nucleic Acid AMP Negative (Negative); Gonococcus By Nucleic Acid AMP Negative (Negative)
== END | disposition home or self-care (01) ==
LOC: LABSPEC 10:19
PROVIDERS: PCP Preventive Medicine Occupational Medicine; Referring Provider Advanced Practice Midwife; Visit Provider Advanced Practice Midwife
DX: Z34.90 Encounter for supervision of normal pregnancy, unspecified, unspecified trimester (principal)
CPT/HCPCS: 87086; 87491; 87591

== ENCOUNTER → 2023-05-14 | Outpatient (CLI) | payer MEDICAID, SELFPAY ==
--- NOTE | 2023-05-14 08:49 | US_ITS ---
ACR Level 3 findings have been noted. An addendum which confirms receipt of the report will follow. EXAM: US , TRANSVAGINAL CLINICAL INDICATION: CRL not cons with dates TECHNIQUE: Real-time transvaginal obstetrical ultrasound of the maternal pelvis and a first trimester with image documentation. Transvaginal imaging was used for better evaluation of the fetus and adnexa. COMPARISON: No relevant prior studies available. FINDINGS: UTERUS/CERVIX: Uterus 12.3 cm x 8.4 cm x 6.6 cm. Mean gestation sac diameter 1.9 cm consistent with 6 weeks 6 days gestation. There is an intrauterine gestation sac with 3.8 mm yolk sac and 1.5 cm pole, consistent with 7 weeks 6 days gestation by CRL. Normal heart rate of 154 bpm. Small elongated presumed subchorionic hemorrhage of 4 mm thickness by 2.1 cm in length by 1 cm transverse superiorly and to the right of the gestation sac without visible mass effect. OVARIES: LEFT OVARY: 4.2 cm x 2.6 cm x 3.6 cm with documented blood flow and an eccentric 2.2 cm x 1.9 cm x 2.4 cm cyst consistent with corpus luteum. RIGHT OVARY: 2.6 cm x 1.5 cm x 1.5 cm with documented blood flow. FREE FLUID: No free fluid. US/Init OB < 14Wks US IMPRESSION: Single live early IUP. Mild discrepancy in size of mean gestation sac diameter and pole. Small subchorionic hemorrhage adjacent to the gestation sac. No significant mass effect. Left ovarian presumed corpus luteum. Electronically Signed: Denise Enriquez MD at 0:37 EST ,
--- OUTSIDE RECORDS SUMMARY | 2023-05-14 09:07 | XMS RPT_ITS | CCD ---
Author Name Unknown Address [address] [facility] [address] [place] [id number] Organization [facility] Care Team Providers Care Weigher Alloy Name Role Phone JEROMY CAM DO Admitting Unavailable JEROMY CAM DO Attending Unavailable JEROMY CAM DO Primary Care Unavailable LULU BRASHER MD Admitting Unavailable LULU BRASHER MD Attending Unavailable LULU BRASHER MD Primary Care Unavailable LULU BRASHER MD Admitting Unavailable LULU BRASHER MD Attending Unavailable LULU BRASHER MD Primary Care Unavailable Problems Active Problems Problem Classification Problem Date Documented Da te Episodic/Chronic Substance-related disorders (1 source) Nicotine dependence, unspecified, uncomplicated; Translations: [Nicotine dependence, unspecified, uncomplicated] Onset: 06-18-2020 Chronic Past or Other Problems Problem Classification Problem Date Documented Da te Episodic/Chronic E Codes: Natural/environment (1 source) Overexertion from strenuous movement or load, initial encounter; Translations: [Overexertion from strenuous movement or load, initial encounter] Onset: 06-18-2020 Episodic E Codes: Unspecified (1 source) Activity, other specified; Translations: [Activity, other specified] Onset: 06-18-2020 Episodic Spondylosis; intervertebral disc disorders; other back problems (2 sources) Low back pain; Translations: [Low back pain] Onset: 06-18-2020 Episodic Sprains and strains (1 source) Strain of muscle, fascia and tendon of lower back, initial encounter; Translations: [Strain of muscle, fascia and tendon of lower back, initial encounter] Onset: 06-18-2020 Episodic Results Test Name Value Interpretation Reference Range Facil ity Encounters Encounter Date Encounter Type Care Provider Facility Start: 12-19-2020 End: 12-20-2020 Emergency department patient visit JEROMY SOLO [facility] Start: 06-18-2020 End: 06-18-2020 Emergency department patient visit LULU WARE [facility] Start: 05-02-2020 End: 05-02-2020 Emergency department patient visit LULU WARE [facility] Procedures Date Procedure Procedure Detail Performing Clinician Start: 05-02-2020 Urinalysis JEROMY PHILIPMara R Payers Date Payer Category Payer Unknown [id number] 1997 Unknown [id number] 1997 Unknown [id number] Unknown [id number] Summary Purpose Family History No Family History Records FoundNo Family History Records Found Advance Directives No Advanced Directives Records FoundNo Advanced Directives Records Found Additional Source Comments INFORMATION SOURCE (unrecogn ized section and content) DATE CREATED AUTHOR AUTHOR'S ORGANIZ ATION 12/22/2020 [facility] FOR RECORDS PERTAINING TO PATIENTS WHO ARE OR HAVE BEEN ENROLLED IN A CHEMICAL DEPENDENCY/SUBSTANCEABUSE PROGRAM, SOME INFORMATION MAY BE OMITTED. This clinical summary was aggregated from multiple sources. Caution should be exercised in using it in the provision of clinical care. This summary normalizes information from multiple sources, and as a consequence, information in this document may materially change the coding, format and clinical context of patient data. In addition, data may be omitted in some cases. CLINICAL DECISIONS SHOULD BE BASED ON THE PRIMARY CLINICAL RECORDS. [employer] provides no warranty or guarantee of the accuracy or completeness of information in this document.
== END | disposition home or self-care (01) ==
LOC: OPUS 08:48
PROVIDERS: PCP Preventive Medicine Occupational Medicine; Referring Provider Advanced Practice Midwife; Visit Provider Advanced Practice Midwife
DX: O09.299 Supervision of pregnancy with other poor reproductive or obstetric history, unspecified trimester (principal); O99.210 Obesity complicating pregnancy, unspecified trimester; Z3A.00 Weeks of gestation of pregnancy not specified
CPT/HCPCS: 76801

== ENCOUNTER → 2023-06-18 | Outpatient (CLI) | payer MEDICAID, SELFPAY ==
[2023-06-18 10:22] LABS: Absolute Lymphocyte Count 2.11 X10^3/uL (0.83-4.51); Absolute Neutrophil Count 4.8 X10^3/uL (2.0-7.7); Basophil# 0.02 X10^3/uL; Basophil% 0.3 % (0-1); Eosinophil# 0.07 X10^3/uL; Eosinophils% 0.9 % (0-5); Hematocrit 37.5 % (37-47); Hemoglobin 12.4 g/dL (12.0-15.0); Lymphocyte # 2.11 X10^3/ul (0.83-4.51); Lymphocyte % 28.2 % (19-41); Mean Corp Hgb Conc 33.1 g/dL (32-36); Mean Corpuscular Hgb 26.6 pg (27.0-32.0); Mean Corpuscular Volume 80.5 fL (81-99); Mean Platelet Vol. 10.5 fl (6.2-12.0); Monocyte# 0.46 X10^3/uL; Monocyte% 6.2 % (0-10); NRBC Flagged by Analyzer 0 % (0-5); Neutrophil % 64.3 % (47-70); Platelet Count 182 K/mm3 (150-450); RBC Distribution Width SD 37.2 fl (35.1-43.9); Red Blood Count 4.66 M/mm3 (4.2-5.4); White Blood Count 7.5 K/mm3 (4.4-11.0)
[2023-06-18 10:44] LABS: Hemoglobin A1c 5.1 % (3.8-5.6)
[2023-06-18 11:39] LABS: HIV - WCH Non-Reactive (Nonreactive); Hepatitis B Surface Antigen Non-Reactive (Nonreactive); Hepatitis C Antibody Non-Reactive (Nonreactive); Rubella IgG Reactive (Nonreactive); Syphilis Antibodies Non-reactive
== END | disposition home or self-care (01) ==
LOC: PAVLAB 10:00
PROVIDERS: PCP Preventive Medicine Occupational Medicine; Referring Provider Advanced Practice Midwife; Visit Provider Advanced Practice Midwife
DX: Z34.81 Encounter for supervision of other normal pregnancy, first trimester (principal)
CPT/HCPCS: 36415; 83036; 85025; 86703; 86762; 86780; 86803; 86850; 86900; 86901; 87340

== ENCOUNTER 2023-10-04 17:55 | Outpatient (CLI) | payer MEDICAID, SELFPAY ==
[2023-10-04 18:59] VITALS: RESP 17; TEMP 36.2
[2023-10-04 19:00] VITALS: BP 131/74; PULSE 102
[2023-10-04 19:04] VITALS: PULSE 108; O2SAT 97
[2023-10-04 19:44] VITALS: BMI 51.7
[2023-10-04 19:47] VITALS: PULSE 101; O2SAT 98
[2023-10-04 19:49] VITALS: BP 129/74; PULSE 110
[2023-10-04 20:25] LABS: Bacteria 0 SEEN /hpf (None Seen); Red Blood Cells-Urine 0 SEEN /hpf (0-5); White Blood Cells 0 SEEN /hpf (0-5)
[2023-10-04 20:26] LABS: Color, Urine Yellow (Yellow); Glucose, Dipstick Normal (Normal); Leukocyte Esterase-Dipstick 25 /ul (Negative); Nitrite-Dipstick Negative (Negative); Occult Blood-Urine Negative /ul (Negative); Protein-Dipstick Negative (Negative); Urine Bilirubin Dipstick Negative (Negative); Urine Clarity Clear (Clear); Urine Urobilinogen Normal (Normal)
[2023-10-04 20:43] LABS: Ketone-Dipstick 150 mg/dl (Negative)
[2023-10-04 21:31] LABS: Mucous, Urine 1+ /hpf (<or=2+); Squamous Epithelial Cells - UA 5-10 SEEN /hpf (5-10)
--- NOTE | 2023-10-07 17:40 | OB.TRI.PN ---
Progress Notes Date of Service: 10/04/23 Progress Note: Patient presents for triage evaluation secondary to threatened labor FHT: 140 Moderate variability reactive no decelerations category I tracing [place]: irritatbility no regular Contractions Assessment and plan: no dilation Reactive NST, reassuring maternal and status patient discharged to home to follow-up as scheudled. See problem list details for additional plan information. Laboratory Studies: Laboratory Tests 10/04/23 Range/Units 20:15 Urine Color Yellow (Yellow) Urine Clarity Clear (Clear) Urine pH 6.0 (5.0 - 8.0) Ur Specific [place] 1.020 (1.002-1.030) Urine Protein Negative (Negative) mg/dl Urine Glucose (UA) Normal (Normal) mg/dl Urine Ketones 150 A* (Negative) mg/dl Urine Occult Blood Negative (Negative) /ul Urine Nitrite Negative (Negative) Urine Bilirubin Negative (Negative) mg/dL Urine Urobilinogen Normal (Normal) mg/dl Ur Leukocyte Esterase 25 H (Negative) /ul Urine RBC 0 SEEN (0-5) /hpf Urine WBC 0 SEEN (0-5) /hpf Ur Squamous Epith Cells 5-10 SEEN (5-10) /hpf Urine Bacteria 0 SEEN (None Seen) /hpf Urine Mucus 1+ (<or=2+) /hpf Charges/Coding Procedures Urinary/Genital [id number]: 81317-04 non-stress test Interp
== END 2023-10-04 21:52 | disposition home or self-care (01) ==
LOC: WPOUT 17:56 → WP 17:57
PROVIDERS: PCP Preventive Medicine Occupational Medicine; Referring Provider Obstetrics & Gynecology; Visit Provider Obstetrics & Gynecology
DX: O47.9 False labor, unspecified (principal)
CPT/HCPCS: 59025; 59050; 81001; 87086; 87088; 99221; G0378

== ENCOUNTER → 2023-10-08 | Outpatient (CLI) | payer MEDICAID, SELFPAY ==
[2023-10-08 11:57] LABS: Glucose Challenge Gest 1H 50g 175 mg/dL (70-140)
== END | disposition home or self-care (01) ==
LOC: PAVLAB 11:11
PROVIDERS: PCP Preventive Medicine Occupational Medicine; Referring Provider Obstetrics & Gynecology; Visit Provider Obstetrics & Gynecology
DX: Z34.90 Encounter for supervision of normal pregnancy, unspecified, unspecified trimester (principal)
CPT/HCPCS: 36415; 82950

== ENCOUNTER → 2023-10-19 | Outpatient (CLI) | payer MEDICAID, SELFPAY ==
[2023-10-19 10:29] LABS: Absolute Lymphocyte Count 1.76 X10^3/uL (0.83-4.51); Absolute Neutrophil Count 7.7 X10^3/uL (2.0-7.7); Basophil# 0.02 X10^3/uL; Basophil% 0.2 % (0-1); Eosinophil# 0.06 X10^3/uL; Eosinophils% 0.6 % (0-5); Hematocrit 35.3 % (37-47); Hemoglobin 11.5 g/dL (12.0-15.0); Lymphocyte # 1.76 X10^3/ul (0.83-4.51); Lymphocyte % 17.6 % (19-41); Mean Corp Hgb Conc 32.6 g/dL (32-36); Mean Corpuscular Hgb 27.6 pg (27.0-32.0); Mean Corpuscular Volume 84.9 fL (81-99); Mean Platelet Vol. 11.1 fl (6.2-12.0); Monocyte# 0.49 X10^3/uL; Monocyte% 4.9 % (0-10); NRBC Flagged by Analyzer 0 % (0-5); Neutrophil # 7.65 X10^3/uL (2.7-7.7); Neutrophil % 76.5 % (47-70); Platelet Count 170 K/mm3 (150-450); RBC Distribution Width CV 13.2 % (11.6-14.6); RBC Distribution Width SD 40.4 fl (35.1-43.9); Red Blood Count 4.16 M/mm3 (4.2-5.4)
[2023-10-19 10:50] LABS: Glucose GTT-Gestation. Fasting 67 mg/dL (<105)
[2023-10-19 11:22] LABS: HIV - WCH Non-Reactive (Nonreactive); Syphilis Antibodies Non-reactive
[2023-10-19 11:43] LABS: Glucose GTT-Gestational 1 Hr 126 mg/dL (<190)
[2023-10-19 13:23] LABS: Glucose GTT-Gestational 2 Hr 123 mg/dL (<165)
[2023-10-19 13:51] LABS: Glucose GTT-Gestational 3 Hr 100 L (<145)
== END | disposition home or self-care (01) ==
LOC: LAB 09:48
PROVIDERS: PCP Preventive Medicine Occupational Medicine; Referring Provider Registered Nurse; Visit Provider Registered Nurse
DX: Z34.92 Encounter for supervision of normal pregnancy, unspecified, second trimester (principal); Z3A.28 28 weeks gestation of pregnancy
CPT/HCPCS: 36415; 82951; 82952; 85025; 86703; 86780

== ENCOUNTER → 2023-11-26 | Outpatient (CLI) | payer MEDICAID, SELFPAY ==
--- NOTE | 2023-11-26 15:46 | US_ITS ---
STUDY: SECOND AND THIRD TRIMESTER OBSTETRICAL ULTRASOUND - LIMITED REASON FOR EXAM: Female, 27 years old BMI 50 LMP: PRIOR ULTRASOUND: 05/14/2023 TECHNIQUE: Transabdominal TECHNICAL QUALITY: Adequate. FINDINGS: There is a single intrauterine fetus. The fetus is in a cephalic presentation. There is demonstrated cardiac activity with a heart rate of 143 bpm. There is a normal amniotic fluid volume. The largest amniotic fluid pocket measures 5.4 cm. The amniotic fluid index (RAFAEL) is 12.2 cm. The placenta is posterior in location and is not low lying. There are Grade 1 placental changes. The cervix measures cm in length. BIOMETRY: BPD: 8.7 cm: 35 weeks, 1 days HC: 32.2 cm: 36 weeks, 3 days AC: 32.6 cm: 36 weeks, 4 days FL: 7.5 cm: 38 weeks, 1 days Age by LMP: 35 weeks, 6 days. BASILIO by LMP: 12/25/2023. age by prior US: weeks, days. BASILIO by prior US: . age by current US: 36 weeks, 6 days. BASILIO by current US: 12/18/2023. Estimated weight: 3050 grams, +/- 457 grams, 77 percentile. Gender: US/OB Limited With Biometrics IMPRESSION: Living intrauterine of 36 weeks 6 days as described above. Electronically Signed: Vishnu Nolan MD at 16:23 EDT ,
== END | disposition home or self-care (01) ==
LOC: US 15:45
PROVIDERS: PCP Preventive Medicine Occupational Medicine; Referring Provider Advanced Practice Midwife; Visit Provider Advanced Practice Midwife
DX: O99.210 Obesity complicating pregnancy, unspecified trimester (principal); Z3A.00 Weeks of gestation of pregnancy not specified
CPT/HCPCS: 76816

== ENCOUNTER → 2023-12-02 | Outpatient (CLI) | payer MEDICAID, SELFPAY | END | disposition home or self-care (01) | PROVIDERS: PCP Preventive Medicine Occupational Medicine; Referring Provider Obstetrics & Gynecology; Visit Provider Obstetrics & Gynecology | DX: O09.90 Supervision of high risk pregnancy, unspecified, unspecified trimester (principal); Z3A.00 Weeks of gestation of pregnancy not specified | CPT/HCPCS: 87077; 87081; 87186 ==

== ENCOUNTER 2023-12-08 16:28 | Outpatient (CLI) | payer MEDICAID, SELFPAY ==
--- NOTE | 2023-12-08 16:41 | US_ITS ---
STUDY: OBSTETRICAL ULTRASOUND - BIOPHYSICAL PROFILE REASON FOR EXAM: Female, 27 years old Deceleration in office LMP: Unknown. PRIOR ULTRASOUND: November 26, 2023 TECHNIQUE: Transabdominal TECHNICAL QUALITY: Adequate. FINDINGS: There is a single intrauterine fetus. The fetus is in a cephalic presentation. There is demonstrated cardiac activity with a heart rate of 145 bpm. There is a normal amniotic fluid volume. The largest amniotic fluid pocket measures 4.2 cm. The amniotic fluid index (RAFAEL) is 14.0 cm. The placenta is posterior and left lateral. There are Grade 1 placental changes. age by prior US: 38 weeks, 4 days. BASILIO by prior US: December 18, 2023. BIOPHYSICAL PROFILE: Breathing Movements (FBM): 2 Gross Body Movements (GBM): 2 Tone (FT): 2 Amniotic Fluid Volume (AFV): 2 TOTAL SCORE: 8 / 8 US/Biophysical Prof W/O Non Stres IMPRESSION: Normal biophysical profile of 8/8. Electronically Signed: Sanya Inman MD at 19:01 EDT ,
[2023-12-08 16:54] VITALS: BMI 53.5
[2023-12-08 16:59] VITALS: BP 112/57; PULSE 84; RESP 18; TEMP 36.4
--- NOTE | 2023-12-14 09:10 | OB.TRI.PN_ITS ---
Progress Notes Date of Service: 12/08/23 Progress Note: Patient presents for triage evaluation secondary to decel on monitor in office, reactive but needs BPP FHT: 140 Moderate variability reactive no decelerations category I tracing [place]: irregular, nothing regular Contractions Assessment and plan: 02/23 bpp Reactive NST, reassuring maternal and status patient discharged to home to follow-up as scheudled. See problem list details for additional plan information.
== END 2023-12-08 18:41 | disposition home or self-care (01) ==
LOC: WPOUT 16:33 → WP 16:35
PROVIDERS: PCP Preventive Medicine Occupational Medicine; Referring Provider Obstetrics & Gynecology; Visit Provider Obstetrics & Gynecology
DX: O36.8390 Maternal care for abnormalities of the fetal heart rate or rhythm, unspecified trimester, not applicable or unspecified (principal); Z3A.00 Weeks of gestation of pregnancy not specified
CPT/HCPCS: 59025; 59050; 76819; 99221; G0378

== ENCOUNTER → 2023-12-15 | Outpatient (CLI) | payer MEDICAID, SELFPAY ==
--- NOTE | 2023-12-15 16:08 | US_ITS ---
STUDY: OBSTETRICAL ULTRASOUND - BIOPHYSICAL PROFILE REASON FOR EXAM: Female, 27 years old heart rate decel LMP: PRIOR ULTRASOUND: 12/08/2023 TECHNIQUE: Transabdominal TECHNICAL QUALITY: Adequate. FINDINGS: There is a single intrauterine fetus. The fetus is in a cephalic presentation. There is demonstrated cardiac activity with a heart rate of 143 bpm. There is a normal amniotic fluid volume. The largest amniotic fluid pocket measures 4.7 cm. The amniotic fluid index (RAFAEL) is 13.3 cm. The placenta is posterior in location and is not low lying. There are Grade 2 placental changes. Age by LMP: 38 weeks, 4 days. BASILIO by LMP: 12/25/2023. Gender: Female BIOPHYSICAL PROFILE: Breathing Movements (FBM): 2 Gross Body Movements (GBM): 2 Tone (FT): 2 Amniotic Fluid Volume (AFV): 2 TOTAL SCORE: US/Biophysical Prof W/O Non Stres IMPRESSION: Normal biophysical profile of 12/22. Electronically Signed: Armani Taylor MD at 17:18 EDT ,
== END | disposition home or self-care (01) ==
PROVIDERS: PCP Preventive Medicine Occupational Medicine; Referring Provider Obstetrics & Gynecology; Visit Provider Obstetrics & Gynecology
DX: O99.213 Obesity complicating pregnancy, third trimester (principal); O76 Abnormality in fetal heart rate and rhythm complicating labor and delivery; Z3A.38 38 weeks gestation of pregnancy
CPT/HCPCS: 76819

== ENCOUNTER 2023-12-16 11:03 | Outpatient (CLI) | payer MEDICAID, SELFPAY ==
[2023-12-16] VITALS (22 sets, daily range): BP systolic 128; BP diastolic 62; PULSE 72–94; RESP 16; TEMP 36.7; O2SAT 93–100; BMI 53.1
--- NOTE | 2023-12-22 22:16 | OB.TRI.PN_ITS ---
Progress Notes Date of Service: 12/16/23 Progress Note: Patient presents for triage evaluation secondary to decreased movement FHT: 130 Moderate variability reactive no decelerations category I tracing [place]: no regular Contractions Assessment and plan: dec movement Reactive NST, reassuring maternal and status patient discharged to home to follow-up as schedued. See problem list details for additional plan information. Charges/Coding Procedures Urinary/Genital [id number]: 57201-30 non-stress test Interp Assessment & Plan (1) Decreased movements in third trimester: (2) 37 weeks gestation of :
== END 2023-12-16 13:10 | disposition home or self-care (01) ==
LOC: WPOUT 11:26 → WP 11:27
PROVIDERS: PCP Preventive Medicine Occupational Medicine; Referring Provider Obstetrics & Gynecology; Visit Provider Obstetrics & Gynecology
DX: O36.8130 Decreased fetal movements, third trimester, not applicable or unspecified (principal); Z3A.37 37 weeks gestation of pregnancy
CPT/HCPCS: 59025; 59050 ×2; G0378 ×2; 99221

== ENCOUNTER 2023-12-17 18:19 | Inpatient (IN) | payer MEDICAID, SELFPAY ==
[2023-12-17] VITALS (12 sets, daily range): BP systolic 118–134; BP diastolic 69–75; PULSE 65–85; RESP 14–20; TEMP 36.1–36.6; O2SAT 98; BMI 53.5
--- NOTE | 2023-12-17 16:08 | US_ITS ---
EXAM: US BIOPHYSICAL PROFILE WITHOUT NON-STRESS TESTING CLINICAL INDICATION: decel''s in office TECHNIQUE: Real-time ultrasound of the maternal pelvis for biophysical profile evaluation with image documentation. COMPARISON: 12/15/2023 FINDINGS: BREATHING MOVEMENTS: Present. Score 2/2. GROSS BODY MOVEMENTS: Present. Score 2/2. TONE: Present. Score 2/2. QUALITATIVE AMNIOTIC FLUID VOLUME: Amniotic fluid volume is 9.2 cm with maximal vertical pocket of 5.3 cm. HEART RATE: heart rate: 133 bpm. PRESENTATION: Cephalic presentation. PLACENTA: Posterior placenta. US/Biophysical Prof W/O Non Stres IMPRESSION: No acute findings. Normal biophysical profile with score of 8/8. Electronically Signed: Leo Villegas DO at 23:25 EDT ,
--- NOTE | 2023-12-17 18:30 | HP.PCM.OB_ITS ---
HPI - General General Date of Admission: 12/17/23 Date of Service: 12/17/23 HPI Narrative ROSALIND JACKSON, is a 27 F 38.6 weeks who presents to unit from office with nonreassuring NST and persistent decreased movement. BPP 12/22 and variables noted on NST. decision made for induction Maternal Data Information BASILIO Calculator Estimated Delivery Date Method Current WG Current Estimate 12/25/23 Ultrasound #2 38w 6d Other Estimates 12/20/23 LMP (Certain) 39w 4d 12/28/23 Ultrasound #1 38w 3d Final BASILIO: 12/25/23 Final BASILIO Source: US >20 weeks Gestational age: 38.6 weeks PFSH PFS Medical History Obesity Spotting Home Medications ?Medication ?Instructions ?Recorded ?Last Taken ?Type multivitamin no.47-iron fum 27 1 cap PO DAILY 04/30/23 12/07/23 21:00 History mg-folate no.1 1 mg-dha 300 mg 1 cap capsule (PNV-DHA) Allergy/AdvReac Type Severity Reaction Status Date / Time No Known Allergies Allergy Verified 12/17/23 16:51 Family History Mother CVA (cerebral vascular accident) Social History adopted: No household members: significant other and children number of children: 1 current occupational status: employed current occupation: [employer] current occupational exposures/hazards: No pets and animals: Yes pets and animals: dog(s) history of recent travel: No sexually active: Yes Smoking Status: Former smoker Tobacco: How many years used: 4 alcohol intake: never substance use type: does not use well-balanced diet: daily or most days caffeine: No eating out: rarely or never during the past year weight has: remained stable what type of physical activity do you participate in: none jose/yarsani: None seatbelt use: always do you feel safe at home: Yes additional social history: [employer] at [employer] History 3 Elective abortions Hx Para 1 Spontaneous abortions 1 Hx # Term Pregnancies Ectopic pregnancies Hx # Pregnancies Multiple births # of living children 1 Past Pregnancies Del. Date Name GA/Weeks Outcome Route Bth Weight Gen Labor Lgth Anesthesia Del Locatn Provider FOB 03/04/20 Cedrick 41 live - full term Male [facility] Damián 07/15/22 8 spontaneous Delivery Date: 03/04/20 Last Updated by: Nathalie Brito SROM 41 wks Visit Details Expected Delivery Route/Plan Labor Preferences- CB/BF classes: [] labor support person: [] labor intervention preferences: [] pain management options preferred: [] cut cord/dad catch: [] : [] PP control planned: [] discussed possible routes of delivery and associated risks: [] special requests: [] Plans Covid status: [] Flu vaccine: [] Tdap vaccine: [] Rhogam: [] LARC form signed: [] Problem list reviewed and updated with the most current plan of care details and appropriate orders placed. Relevant counseling for the gestational age provided. Continue routine care and follow up unless otherwise noted in visit notes/problem list details OB Flowsheet Initial Weight: 308 lb Date -?-?-?-?-?-?-?-?-?-?-?--?- EGA Weight BP Urine Prot -?-?-?-?-?-?-?-?-?-?-?-?- Glucose FHR FuHt Pres Dilation -?-?-?-?-?-?-?-?-?-?-?-?- Effaced St Visit Note 05/06/23 -?-?-?-?-?-?-?-?-?-?-?-?- 6w 5d 308 lb 2 oz (+2 oz) -?--?-?-?-?-?-?-?-?-?-?-?- 131 -?-?-?-?-?-?-?-?-?-?-?-?- KW- CRL 7.0 not consistent with dates. measuring at 6.2 weeks. Formal US ordered. NOB labs today. Desires NIPT will order picker/assembler at next visit. RTO in 2-3 weeks 05/28/23 -?-?-?-?-?-?-?-?-?-?-?-?- 9w 6d 307 lb (-16 oz) 134/82 -?-?-?-?-?-?-?-?-?-?-?-?- -?-?-?-?-?-?-?-?-?-?-?-?- kw-feeling well today. no vb/cramping. FHR noted with handheld US today. Formal US reviewed with patient. 06/23/23 -?-?-?-?--?-?-?-?-?-?-?-?- 13w 4d 305 lb 8 oz (-2 lb 8 oz) 119/75 Negative -?-?-?-?-?-?-?-?-?-?-?-?- Negative 160 -?-?-?-?-?-?-?-?-?-?-?-?- JV- no cramping or spotting. M anatomy scan order placed. low risk NIPT. 07/23/23 -?-?-?-?-?-?-?-?-?-?-?-?- 17w 6d 302 lb 4 oz (-5 lb 12 oz) 128/70 -?-?-?-?-?-?-?-?-?-?-?-?- 150 -?-?-?-?-?-?-?-?-?-?-?-?- KW-vb/cramping. US on august 02. no concerns today 08/18/23 -?-?-?-?-?-?-?-?-?-?-?-?- 21w 4d 304 lb 4 oz (-3 lb 12 oz) 127/75 Negative -?-?-?-?-?-?-?-?-?-?-?-?- Negative 152 -?-?-?-?-?-?-?-?-?-?-?--?- JV- no cramping or bleeding. needs to go back for rpt images for anatomy scan. 09/17/23 -?-?-?-?-?-?-?-?-?-?-?-?- 25w 6d 304 lb 6 oz (-3 lb 10 oz) 119/74 Negative -?-?-?-?-?-?-?-?-?-?-?-?- Negative 145 26 -?-?-?-?-?-?-?-?-?-?-?-?- KW- no vb/lof/ct x. good fm. LARC today. GCT next visit 10/08/23 -?-?-?-?-?-?-?-?-?-?-?-?- 28w 6d 303 lb 6 oz (-4 lb 10 oz) 124/76 Negative -?-?-?-?-?-?-?-?-?-?-?-?- Negative 140 29 -?-?-?-?-?-?-?-?-?-?-?-?- LC- no vb/ctx/lo f. good fm. glucose 175- 3 hour ordered. 10/19/23 -?-?-?-?-?-?-?-?-?-?-?-?- 30w 3d 303 lb (-5 lb) 117/75 Negative -?-?-?-?-?-?-?-?-?-?-?-?- Negative 135 34 -?-?-?-?-?-?-?-?-?-?-?-?- KW- no vb/lof/ct x. good fm. tdap done. passed 3 hour GCT KW- no vb/lof/ctx. good fm. tdap done. passed 3 hour GCT. plan 34 week NSTs and growth at 36 weeks 11/05/23 -?-?-?-?-?-?-?-?-?-?-?-?- 32w 6d 307 lb (-16 oz) 116/67 Negative -?-?-?-?-?-?-?-?-?-?-?-?- Negative 145 36 -?-?-?-?-?-?-?-?-?-?-?-?- JV-still some lo wer pelvic cramping but thinks is round ligament pain. no lof, vaginal bleeding, or dec fm. plan nsts 34 weeks and growth 36 11/15/23 -?-?-?-?-?-?-?-?-?-?-?-?- 34w 2d 311 lb 8 oz (+3 lb 8 oz) 125/76 Negative -?-?-?-?-?-?-?-?-?-?-?-?- Negative 135 37 -?-?-?-?-?-?-?-?-?-?-?-?- KW- no vb/lof/ct x. good fm. NST today. US 11/25. 11/22/23 -?-?-?-?-?-?-?-?-?-?-?-?- 35w 2d 312 lb (+4 lb) 120/78 -?-?-?-?-?-?-?-?-?-?-?-?- 130 37 -?-?-?-?-?-?-?-?--?-?-?-?- JV- nst reactive . No complaints today. plan GBS next week. us coming up. 12/02/23 -?-?-?-?-?-?-?-?-?-?-?-?- 36w 5d 314 lb 6 oz (+6 lb 6 oz) 125/78 Negative -?-?-?-?-?-?-?-?-?-?-?-?- Negative 130 36 -?-?-?-?-?-?-?-?-?-?-?-?- JV- reactive nst . growth 77th % gbs today 12/08/23 -?-?-?-?-?-?-?-?-?-?-?-?- 37w 4d 314 lb (+6 lb) 122/77 -?-?-?-?-?-?-?-?-?-?-?-?- 120 -?-?-?-?-?-?-?-?-?-?-?-?- MH-nonreactive N ST. Patient has noted dec movement. To for monitoring and BPP 12/17/23 -?-?-?-?-?-?-?-?-?-?-?-?- 38w 6d 313 lb (+5 lb) 127/84 -?-?-?-?-?-?-?-?-?-?-?-?- 140 -?-?-?-?-?-?-?-?-?-?-?-?- JV- non-reacdtiv e nst with small variable. sending to L&D for bpp. has had minimal movement for last 3 days. will consider IOL. NST FHR Rate Baby A Baseline: 140 Variability:: Moderate Accelerations:: 15 x 15 Decelerations:: Variable NST Reactive:: Yes FHR Category:: Category I Uterine Activity:: irregular ROS Constitutional Constitutional: Denies change in weight, fatigue, fever(s), headache(s), poor appetite or weakness Eyes Eyes: Denies blurry vision, change in vision, floaters, seeing flashes or spots in vision ENT HEENT: Denies dizziness, headache(s), loss taste/smell or sore throat Cardiovascular Cardiovascular: Denies chest pain, dizziness, dyspnea, irregular heart rhythm, lightheadedness, palpitations or rapid heart rate Respiratory/Chest Respiratory/Chest: Denies change in mental status, chest tightness, cough, dyspnea or breast pain Gastrointestinal Gastrointestinal: Denies anorexia, chewing difficulty, constipation, diarrhea or weight changes Genitourinary Genitourinary: Denies difficulty urinating, dysuria, flank pain, genital pain, urinary frequency or urinary urgency Musculoskeletal Musculoskeletal: Denies back pain, difficulty walking, extremity pain, joint pain, muscle cramps or muscle weakness Integumentary Integumentary: Denies lesions or unusual bruising Neurologic Neurologic: Denies abnormal movements, abnormal speech, dizziness, numbness, seizure-like activity, syncope or weakness Psychiatric Psychiatric: Denies behavioral changes, change in appetite, confusion, depression, homicidal ideation, suicidal ideation or suicidal thoughts Endocrine Endocrinology: Denies excessive sweating, polydipsia or polyuria Hematologic/Lymphatic Hematologic/Lymphatic: Denies anemia Allergic/Immunologic Allergic/Immunologic: Denies itchy eyes, lip swelling, throat swelling, tongue swelling or wheezing Vital Signs Vital Signs Vital Signs: 12/17/23 16:00 12/17/23 16:00 12/17/23 16:00 Temperature 97.8 F Temperature Source Tympanic Respiratory Rate 14 Weight Weight: 312 lb Body Mass Index (BMI) 53.5 Physical Exam Const alert, oriented x3 and no apparent distress General Appearance: cooperative Orientation / Consciousness: awake HEENT normocephalic Neck full ROM Lymph Lymphatic: no lymphadenopathy noted Chest inspection of chest normal Resp normal respiratory effort and normal air movement Effort and Inspection: able to speak in complete sentences and symmetric chest movement GI soft to palpation and non-tender Inspection: gravid Palpation: soft; Negative for tender external exam normal Manual OB Exam: dilated 2, effaced 70 and station -2 Back/Spine normal to inspection Extremity normal to inspection and full ROM Skin no rashes or lesions noted Psych mental status grossly normal Appearance: grossly normal Speech: normal speech Labs Labs Labs: Blood Type O POSITIVE Antibody Screen NEGATIVE Hct 35.3 % (37-47) L Hgb 11.5 g/dL (12.0-15.0) L Obstetrics Ultrasound Syphilis Total Ab Non-reactive Rubella IgG Antibody Reactive (Nonreactive) Hep Bs Antigen Non-Reactive (Nonreactive) Hepatitis C Antibody Non-Reactive (Nonreactive) Chlamydia DNA (CRYSTAL) Negative (Negative) N.gonorrhoeae DNA (CRYSTAL) Negative (Negative) HIV 1&2 Antibody Non-Reactive (Nonreactive) Glucose 1 Hr 50 gm 175 mg/dL (70-140) H Gest Glucose Tolerance MG/DL Rhogam given: No Assessment & Plan (1) heart deceleration: (2) Positive GBS test: COMMENT: Treat in labor (3) Glucose intolerance: COMMENT: 3 hour passed. (4) Obesity affecting : QUALIFIERS: Trimester: third trimester Obesity type affecting : unspecified obesity Qualified Code(s): O99.213 - Obesity complicating , third trimester COMMENT: BMI 51- A1C at NOB, encouraged healthy weight gain. NSTs weekly at 34 weeks and 36 week (77%) growth US (5) History of miscarriage, currently : COMMENT: x1 07/2022 (6) Supervision of high-risk : QUALIFIERS: Trimester: third trimester Qualified Code(s): O09.93 - Supervision of high risk , unspecified, third trimester COMMENT: PRR, , BASILIO 12/20/23, girl, KENNEDY Philip, Art (7) : QUALIFIERS: Weeks of gestation: 38 weeks Qualified Code(s): Z3A.38 - 38 weeks gestation of COMMENT: NIPT low risk (8) Encounter for induction of labor: PLAN: Patient presents IOL, plan management for with marcelo bulb, pitocin/AROM. Pain management: plans epidural. GBS positive-treat with PCN. Management of any complications: none I have reviewed the [facility] and made any clinically relevant updates. Dr Leavitt made aware and agrees with assessment and plan. Charges/Coding Multi Select Codes Urinary/Genital Urinary/Genital CPT Codes: No Charge
--- NOTE | 2023-12-17 19:34 | PN_ITS ---
Progress Note Coping well with contractions current tracing: FHT: 130 Moderate variability reactive no decelerations category I tracing [place]: 3-4 minute Contractions Membranes:intact SVE: 2/70/-3 marcelo bulb placed without difficulty A/P: Continue with position changes Start/Titrate pitocin per protocol Epidural per anesthesia PCN for GBS prophylaxis Anticipate Dr Small aware of above assessment and agrees with plan of care Assessment & Plan Assessment/Plan (1) Decreased movement: (2) Encounter for induction of labor: (3) heart deceleration: (4) Positive GBS test: (5) Glucose intolerance: (6) Obesity affecting : QUALIFIERS: Trimester: third trimester Obesity type affecting : unspecified obesity Qualified Code(s): O99.213 - Obesity complicating , third trimester (7) History of miscarriage, currently : (8) Supervision of high-risk : QUALIFIERS: Trimester: third trimester Qualified Code(s): O09.93 - Supervision of high risk , unspecified, third trimester (9) : QUALIFIERS: Weeks of gestation: 38 weeks Qualified Code(s): Z3A.38 - 38 weeks gestation of Multi Select Codes Urinary/Genital Urinary/Genital CPT Codes: No Charge
[2023-12-17 19:57] LABS: Absolute Neutrophil Count 4.6 X10^3/uL (2.0-7.7); Basophil# 0.02 X10^3/uL; Basophil% 0.3 % (0-1); Eosinophil# 0.04 X10^3/uL; Eosinophils% 0.6 % (0-5); Hematocrit 35.1 % (37-47); Hemoglobin 11.8 g/dL (12.0-15.0); Mean Corp Hgb Conc 33.6 g/dL (32-36); Mean Corpuscular Volume 83.2 fL (81-99); Mean Platelet Vol. 11.7 fl (6.2-12.0); Monocyte# 0.44 X10^3/uL; Monocyte% 6.5 % (0-10); NRBC Flagged by Analyzer 0 % (0-5); Neutrophil # 4.59 X10^3/uL (2.7-7.7); Neutrophil % 67.3 % (47-70); Platelet Count 148 K/mm3 (150-450); RBC Distribution Width CV 13.3 % (11.6-14.6); RBC Distribution Width SD 39.8 fl (35.1-43.9); Red Blood Count 4.22 M/mm3 (4.2-5.4); White Blood Count 6.8 K/mm3 (4.4-11.0)
[2023-12-17] MEDS: Oxytocin 15 Units/NS 250ml 15 UNITS/250 ML IV.SOLN 2 UNITS IV (20:21)
[2023-12-17] MEDS: Lactated Ringers 1,000 ML 50 ML IV (20:21)
[2023-12-17 20:37] LABS: Syphilis Antibodies Non-reactive
[2023-12-17] MEDS: Penicillin G Pot 5,000,000 UNITS in 0.9% Normal Saline (100mL MB+) 100 ML 150 UNITS IV (20:49)
[2023-12-17] MEDS: 0.9% Normal Saline Single 100 ML IV.SOLN. INTRA-UTER (20:49)
[2023-12-17] MEDS: Acetaminophen 500 MG Tablet PO (23:20)
[2023-12-17] MEDS: Lactated Ringers 1,000 ML 999 ML IV (23:39)
[2023-12-18] VITALS (101 sets, daily range): BP systolic 104–138; BP diastolic 53–86; PULSE 61–103; RESP 16–18; TEMP 36.1–36.4; O2SAT 96–100
[2023-12-18] MEDS: fentaNYL-bupivacaine (epidural) 100 ML BAG EPIDURAL ×3 (00:30→09:02)
[2023-12-18] MEDS: LACTATED RINGERS 500 ML 999 ML IV ×2 (00:36→05:05)
[2023-12-18] MEDS: Penicillin G 3,000,000 Units 50 ML 100 UNITS IV ×2 (01:56→06:18)
[2023-12-18] MEDS: Amnioinfusion- 0.9% NS 1,000 ML IV.SOLN. 1000 ML INTRA-UTER ×2 (02:50→09:55)
--- NOTE | 2023-12-18 02:53 | PCM.PN.BLA ---
Progress Note comfortable with epidural current tracing: FHT:130 Moderate variability reactive variable decelerations category II tracing [place]: 2-3 Contractions Membranes:ruptured clear SVE:7/70/-2 A/P: Continue with position changes Titrate pitocin per protocol Epidural per anesthesia PCN for GBS prophylaxis Amnioinfusion started for persistent variables Anticipate Dr Small aware of above assessment and agrees with plan of care Assessment & Plan Assessment/Plan (1) Decreased movement: (2) Encounter for induction of labor: (3) heart deceleration: (4) Positive GBS test: (5) Glucose intolerance: (6) Obesity affecting : QUALIFIERS: Trimester: third trimester Obesity type affecting : unspecified obesity Qualified Code(s): O99.213 - Obesity complicating , third trimester (7) History of miscarriage, currently : (8) Supervision of high-risk : QUALIFIERS: Trimester: third trimester Qualified Code(s): O09.93 - Supervision of high risk , unspecified, third trimester (9) : QUALIFIERS: Weeks of gestation: 38 weeks Qualified Code(s): Z3A.38 - 38 weeks gestation of Multi Select Codes Urinary/Genital Urinary/Genital CPT Codes: No Charge
[2023-12-18] MEDS: Lactated Ringers 1,000 ML 200 ML IV ×2 (03:50→09:42)
[2023-12-18] MEDS: Ondansetron 4 MG/2 ML Vial IV (03:50)
--- NOTE | 2023-12-18 05:30 | PCM.PN.BLA ---
Progress Note Appeals Officer called to assess patient. She is on pitocin and having variable decelerations with every contraction for several hours. Amnioinfusion was started at 2:30 with a 300 bolus and now on 75 cc/hr maintenance. The patient is feeing uncomfortable with contractions and was just given a bolus in her epidural. She also received a bolus of 500 cc IV. Orders to nurse were given to turn the pitocin off and increase the amnioinfusion to 100. current tracing: FHT: Moderate variability, persistent variable decelerations, last 3 contractions were late decelerations [place]: q 2-3 min Contractions spontaneously without pitocin A/P: 27 y/o @ 39 weeks, being induced for persistent decreased movement and variable decelerations in office on NST. - heart rate not responding to interventions of position change, fluid bolus, and amnioinfusion for several hours. -will monitor closely for cervical change within the next hour , but if no change we discussed a section -patient is now requesting a section. will reassess in 1 hour.
--- NOTE | 2023-12-18 11:00 | PCM.PN.BLA ---
Progress Note comfortable with epidural current tracing: FHT: 115 Moderate variability reactive occasional variable decelerations category II tracing [place]: 2-4 min Contractions Membranes: ruptured remains clear SVE:/-1 reviewed tracing abnormalities since last note: collaboration with Dr Leavitt at this time for update on exam and FHT tracing. Planning on coming to hospital to assess position prior to pushing A/P: Continue with position changes Titrate pitocin per protocol Epidural per anesthesia PCN for GBS prophylaxis Anticipate Dr Small aware of above assessment and agrees with plan of care Assessment & Plan Assessment/Plan (1) Decreased movement: (2) Encounter for induction of labor: (3) heart deceleration: (4) Positive GBS test: (5) Glucose intolerance: (6) Obesity affecting : QUALIFIERS: Trimester: third trimester Obesity type affecting : unspecified obesity Qualified Code(s): O99.213 - Obesity complicating , third trimester (7) History of miscarriage, currently : (8) Supervision of high-risk : QUALIFIERS: Trimester: third trimester Qualified Code(s): O09.93 - Supervision of high risk , unspecified, third trimester (9) : QUALIFIERS: Weeks of gestation: 38 weeks Qualified Code(s): Z3A.38 - 38 weeks gestation of Multi Select Codes Urinary/Genital Urinary/Genital CPT Codes: No Charge
[2023-12-18] MEDS: Methylergonovine 0.2 MG/ML Ampul IM (11:27)
[2023-12-18] MEDS: Oxytocin 15 Units/NS 250ml 15 UNITS/250 ML IV.SOLN 83 UNITS IV (11:54)
--- NOTE | 2023-12-18 12:11 | OP.PCM_ITS ---
Assessment & Plan (1) Decreased movement: (2) Encounter for induction of labor: (3) heart deceleration: (4) Positive GBS test: COMMENT: Treat in labor (5) Glucose intolerance: COMMENT: 3 hour passed. (6) Obesity affecting : QUALIFIERS: Trimester: third trimester Obesity type affecting : unspecified obesity Qualified Code(s): O99.213 - Obesity complicating , third trimester COMMENT: BMI 51- A1C at NOB, encouraged healthy weight gain. NSTs weekly at 34 weeks and 36 week (77%) growth US (7) History of miscarriage, currently : COMMENT: x1 07/2022 (8) Supervision of high-risk : QUALIFIERS: Trimester: third trimester Qualified Code(s): O09.93 - Supervision of high risk , unspecified, third trimester COMMENT: PRR, , BASILIO 12/20/23, girl, PC Cedrick, Art (9) : QUALIFIERS: Weeks of gestation: 38 weeks Qualified Code(s): Z3A.38 - 38 weeks gestation of COMMENT: NIPT low risk Maternal Data Information BASILIO Calculator Estimated Delivery Date Method Current WG Current Estimate 12/25/23 Ultrasound #2 39w 0d Other Estimates 12/20/23 LMP (Certain) 39w 5d 12/28/23 Ultrasound #1 38w 4d Final BASILIO Source: US <20 weeks Gestational age: 39 weeks 0 days Vaginal Delivery Operative Information Date of Procedure: 12/18/23 Pre-Operative Diagnosis: intolerance to labor, @ 39 weeks 0 days, Induction of labor for heart rate decelerations and persistent decreased movement Post-Operative Diagnosis: intolerance to labor, @ 39 weeks 0 days, Induction of labor for heart rate decelerations and persistent decreased movement Surgery / Procedure Performed: Vacuum Assisted Vaginal Delivery Type of Anesthesia: Epidural Estimated Blood Loss: 300cc Time of Delivery: 11:21 Findings Description of Procedure: Details of delivery: This is a 26 year old woman who was admitted to labor and delivery for decelerations and persistent decreased movement. The decision was made to perform a vacuum extraction due to bradycardia in the 40's with pushing. The risk benefits and alternatives of the procedure were discussed with the patient and verbal consent was obtained. The infant was noted to be at a +2 station, the cervix was completely dilated. The 's head was noted to be in the right occiput anterior presentation. The vacuum was placed in the correct placement in front of the posterior fontanelle. This was confirmed digitally. With the patient's next contraction, the vacuum was inflated and a gentle downward pressure was used to assist with bringing the baby's head to a +3 station. With 1 pull and 0 pop offs. The head was delivered atraumatically. No nuchal cord was noted. The anterior shoulder followed by the posterior shoulder were delivered without difficulty. The infant was handed off to the patient's chest. The infant was found to be vigorous and crying and moving of all 4 extremities. The mouth and nares were bulb suctioned. After 60 second delay the cord was clamped and cut and the infant was handed off to the awaiting nurses for routine assessment. The placenta was delivered with gentle traction and uterine massage. Inspection of the vagina cervix and perineum was performed. There was noted a small vaginal side wall tear (left) repaired with a 3-0 vicryl. A vaginal tunnel was noted prior to the delivery and likely consistent with prior 4th degree tear. This was oversewn and repaired. The patient tolerated the procedure well sponge lap and needle counts were correct x2 and she is now recovering in stable condition. baby girl zyla Presentation: Vertex Amniotic Membrane Rupture Type: Artificial Amniotic Fluid Description: Clear Placental Delivery Description: Spontaneous Placenta Disposition: [facility] Cord Vessel Description: 3 Vessels Cord Entanglement: Around neck x 1, loose Nuchal Cord Compression: Without compression A Gender: Female (1 minute): 8 (5 minute): 9 Delayed Cord Clamping: Yes Post Vaginal Delivery Medications Given After Delivery: IV Pitocin and IM Methergin Episiotomy Description: None Laceration: Vaginal Extension/lac Complication Complications: None Multi Select Codes Urinary/Genital Urinary/Genital CPT Codes: 64003 Vaginal Delivery [facility]
--- NOTE | 2023-12-18 12:21 | DCINST_ITS ---
Discharge Instructions Diet Discharge Diet: No restrictions Activity Discharge Activity: Return to Normal Activity, May Not Drive (while taking narcotic pain medications.) and May Shower May resume sexual activity in: 4-6 weeks Dressing / Incision Call your doctor if your incision/area has: Continuous Slow Oozing, Sudden Increased Bleeding, Increased Pain/ Swelling, Increased Redness and Foul Smelling Discharge Follow Up Care Please Follow Up With: Skye Leavitt DO When: Call [phone] to make an appointment with your doctor in 6 weeks. If you had elevated blood pressure or 4th degree laceration, you will need to be seen in 2 weeks. Test Results: Test results from this visit will be discussed in further detail at your follow- up appointment, if applicable. Discharge Plan Admission Admit Date/Time: 12/17/23 18:19 Attending Provider: Skye Leavitt Primary Care Provider: Howard Gomez Discharge Orders/Prescriptions Prescriptions: No Action PNV-DHA 27 mg iron-1 mg -300 mg capsule 1 cap PO DAILY Referrals / Follow Up: Howard Gomez DO [Primary Care Provider] -
[2023-12-18] MEDS: Acetaminophen 500 MG Tablet 1000 MG PO (17:39)
[2023-12-18] MEDS: Ibuprofen 600 MG Tablet PO (21:58)
[2023-12-19] VITALS: BP 108/63; PULSE 81; RESP 16; TEMP 36.1; O2SAT 97
[2023-12-19] MEDS: Acetaminophen 500 MG Tablet 1000 MG PO (00:11)
[2023-12-19 04:45] VITALS: BP 102/49; PULSE 65; RESP 16; TEMP 36.2; O2SAT 99
[2023-12-19 08:15] VITALS: BP 105/60; PULSE 83; RESP 16; TEMP 36.2; O2SAT 98
--- NOTE | 2023-12-19 11:07 | PCM.DC.SUM ---
Providers Date of Admission: 12/17/23 Date of Discharge: 12/19/23 Primary Care Physician: Dr. Howard Gomez DO Reason For Visit: LABOR AND DELIVERY Diagnosis Discharge Diagnosis (1) Decreased movement: Status: Acute Code(s): O36.8190 - Decreased movements, unspecified trimester, not applicable or unspecified (2) Encounter for induction of labor: Status: Acute Code(s): Z34.90 - Encounter for supervision of normal , unspecified, unspecified trimester Plan: Patient presents IOL, plan management for with marcelo bulb, pitocin/AROM. Pain management: plans epidural. GBS positive-treat with PCN. Management of any complications: none I have reviewed the [facility] and made any clinically relevant updates. Dr Leavitt made aware and agrees with assessment and plan. (3) heart deceleration: Status: Acute (4) Positive GBS test: Status: Acute Code(s): B95.1 - Streptococcus, group B, as the cause of diseases classified elsewhere (5) Glucose intolerance: Status: Acute Code(s): E74.39 - Other disorders of intestinal carbohydrate absorption (6) Obesity affecting : Status: Acute Code(s): O99.210 - Obesity complicating , unspecified trimester Qualifiers: Trimester: third trimester Obesity type affecting : unspecified obesity Qualified Code(s): O99.213 - Obesity complicating , third trimester (7) History of miscarriage, currently : Status: Acute Code(s): O09.299 - Supervision of with other poor reproductive or obstetric history, unspecified trimester (8) Supervision of high-risk : Status: Acute Code(s): O09.90 - Supervision of high risk , unspecified, unspecified trimester Qualifiers: Trimester: third trimester Qualified Code(s): O09.93 - Supervision of high risk , unspecified, third trimester (9) : Status: Acute Code(s): Z34.90 - Encounter for supervision of normal , unspecified, unspecified trimester Qualifiers: Weeks of gestation: 38 weeks Qualified Code(s): Z3A.38 - 38 weeks gestation of Medications at Discharge Home Medications multivitamin no.47-iron fum 27 mg-folate no.1 1 mg-dha 300 mg capsule (PNV-DHA) 1 cap PO DAILY 04/30/23 Hospital Course Procedures None Summary of Care Provided Minutes Spent on Discharge: 30 Physical Exam Const alert, oriented x3 and no apparent distress Neck full ROM Resp normal respiratory effort, normal air movement and no retractions Effort and Inspection: able to speak in complete sentences and symmetric chest movement GI soft to palpation Inspection: incision intact Bladder / Kidney Exam: bladder normal to palpation Uterus Palpation: uterus fundus Extremity normal to inspection and full ROM Psych mental status grossly normal, thought process normal and cooperative Weight / BMI Weight Weight: 312 lb Body Mass Index (BMI) 53.5 ABG / Lab / Microbiology Data 12/17/23 19:45 D/C Instructions Discharge Diet: No restrictions May shower in (days): 0 May resume sexual activity in: 4-6 weeks Weight Bearing Status: Full weight bearing Call your doctor if your incision/area has: Continuous Slow Oozing, Sudden Increased Bleeding, Increased Pain/ Swelling, Increased Redness and Foul Smelling Discharge Call your doctor if you observe: Fever of 101 or Higher and Using more than 1 pad per hour (for 2 hours) Suture Line Care: Avoid Pulling/Pushing and Avoid Pinching/Bending Cleanse incision/area with: Soap & Water and Keep Dressing Clean & Dry Please Follow Up With: Skye Leavitt DO When: Call [phone] to make an appointment with your doctor in 6 weeks. If you had elevated blood pressure or 4th degree laceration, you will need to be seen in 2 weeks. Meaningful Use Info Meaningful Use Meaningful Use Diagnoses (Choose all that apply): None applicable Ischemic Stroke Statin Dosing Therapy Reference: STATIN DOSE THERAPY REFERENCE: * Patients > 75 years receive moderate or high dose statin therapy. * Patients 75 years or YOUNGER should receive HIGH intensity statin dose unless contraindicated. You will be required to document reason for non-treatment if statin daily dose does not meet guidelines. HIGH DOSE STATIN THERAPY DAILY Atorvastatin > than or = to 40 mg Rosuvastatin > than or = to 20 mg Amlodipine + Atorvastatin > than or = to 2.5/40 mg Ezetimibe + Simvastatin 10/80 mg Simvastatin 80mg Discharge Plan Admission Admit Date/Time: 12/17/23 18:19 Attending Provider: Skye Leavitt Primary Care Provider: Howard Gomez Discharge Orders/Prescriptions Prescriptions: No Action PNV-DHA 27 mg iron-1 mg -300 mg capsule 1 cap PO DAILY Referrals / Follow Up: Howard Gomez DO [Primary Care Provider] - Disposition Disposition (needs filled in before D/C Order can be placed): Home, Self Care Charges/Coding Procedures Urinary/Genital [id number]: No Charge
== END 2023-12-19 12:15 | disposition home or self-care (01) | DRG 560 ==
LOC: WPOUT 18:24 → WP 18:24
PROVIDERS: Advanced Practice Midwife; Admitting Provider Obstetrics & Gynecology; PCP Preventive Medicine Occupational Medicine; Visit Provider Obstetrics & Gynecology
DX: O76 Abnormality in fetal heart rate and rhythm complicating labor and delivery (principal); Z37.0 Single live birth; O26.23 Pregnancy care for patient with recurrent pregnancy loss, third trimester; B95.1 Streptococcus, group B, as the cause of diseases classified elsewhere; O99.214 Obesity complicating childbirth; E74.39 Other disorders of intestinal carbohydrate absorption; O36.8130 Decreased fetal movements, third trimester, not applicable or unspecified; O69.2XX0 Labor and delivery complicated by other cord entanglement, with compression, not applicable or unspecified; Z3A.38 38 weeks gestation of pregnancy; Z87.891 Personal history of nicotine dependence; O99.824 Streptococcus B carrier state complicating childbirth; O99.284 Endocrine, nutritional and metabolic diseases complicating childbirth; O71.4 Obstetric high vaginal laceration alone
CPT/HCPCS: 59025; 59050; 76819; 85025; 86780; 86850; 86900; 86901; 99221; J7030; J7120; G0378; J2405